=== PATIENT | female | born 1970 | race American Indian/Alaskan Native ===

== ENCOUNTER 2016-09-25 18:31 | Emergency (ER) | payer SELFPAY ==
--- NOTE | 2016-09-25 20:18 | Emergency Department Report ---
Chief Complaint: Skin/Abscess/Foreign Body Stated Complaint: LUMP UNDER LEFT BREAST Time Seen by Provider: 09/25/16 20:15 - HPI History of Present Illness: Patient is a 46-year-old female who presents with a lump/mass underneath her right breast region. Patient states she noticed a lump about a week ago. Patient states his thumb inside and very painful to touch. Patient says she hasn't put warm compresses on the lump. She has a history of high blood pressure on blood pressure medications. Patient states she took her blood pressure medication away earlier today. Patient denies any blurry vision or headaches or dizziness.. Patient denies any drainage from the lump or mass. Patient denies fevers/ nausea/vomiting/chills/abdominal pain or any other problems. - ROS Review of Systems: As noted in HPI - Exam Vital Signs: Vital Signs 09/25/16 18:44 Temperature 98.5 F Pulse Rate 153 H Respiratory 20 Rate Blood Pressure 186/110 O2 Sat by Pulse 100 Oximetry Physical Exam: GENERAL: Alert and oriented x3, no apparent distress, Normal Gait, atraumatic. LUNGS: Symetrical with respiration, No wheezing, no rales or crackles, CTAB. HEART: S1, S2 present, regular rate and rhythm without murmur, no rubs, no gallops. BREAST: Symetrical, Supple bilaterally, lesions, ulcerations. NOn draining flactulant 2-3 cm painful mass on righ chest area under breast. slightly eythematous. MSE screening note: Focused history and physical exam performed. Due to findings the following was ordered: ED Medical Decision Making - Medical Decision Making Also on 153 at initial triage. Patient's alert and oriented 3. Patient is in no respiratory or acute distress. Patient can be seen in fast track due to no other symptoms other than painful mass underneath breasts. ED Disposition for MSE Condition: Stable
--- NOTE | 2016-09-26 02:59 | Emergency Department Report ---
Abscess Boil HPI - HPI Chief Complaint: Skin/Abscess/Foreign Body Stated Complaint: LUMP UNDER LEFT BREAST Time Seen by Provider: 09/26/16 02:24 Duration: 1 Week Location: Other (underneath right breast) Severity: Severe History: Yes Pain (to ponder left breast), Yes Purulent Drainage (patient states she squeezed it and some white pus came out), No Fever, No Numbness, No Foreign Body, No Previous History, No Insect Bite HPI: Patient here reporting that she has a lump under her right breast that started 1 week ago.. She says she squeezed some discharge out of area and it smelled bad. Denies any fever or chills .report redness and tenderness in the area. Denies any drainage from the nipple. Eyes any lump in breast. She said that she has been putting warm compresses to side and it's been increasing in size. Patient heart rate in triage is 153. EKG showed sinus tachycardia at 1: 15. Patient says she sees a clinical nursing manager because she gets tachycardia and she is on metoprolol. Home Medications: Home Medications Medication Instructions Recorded Confirmed Last Taken Flecainide [Tambocor] 50 mg PO QDAY 10/12/15 10/12/15 Unknown Previous Rx's Medication Instructions Recorded Last Taken Type Aspirin [Aspirin BABY CHEW TAB] 81 mg PO QDAY #30 tab.chew 12/18/14 Unknown Rx Levothyroxine [Synthroid] 25 mcg PO DAILY@0600 #30 tablet 12/18/14 Unknown Rx Metoprolol [Lopressor TAB] 6.25 mg PO BID #60 tablet 12/18/14 Unknown Rx traMADol [Ultram] 50 mg PO Q4HR PRN #20 tablet 10/13/15 Unknown Rx Cyclobenzaprine [Flexeril] 10 mg PO TID PRN #14 tablet 08/19/16 Unknown Rx HYDROcodone/APAP 5-325 [[place] 1 - 2 each PO Q6HR PRN #14 tablet 08/19/16 Unknown Rx 5/325] Ibuprofen [Motrin 800 MG tab] 800 mg PO Q8HR PRN #20 tablet 09/26/16 Unknown Rx Sulfamethoxazole/Trimethoprim 1 each PO BID #20 tablet 09/26/16 Unknown Rx [Bactrim DS TAB] Allergies/Adverse Reactions: Allergies Allergy/AdvReac Type Severity Reaction Status Date / Time clindamycin Allergy Rash Verified 07/26/13 09:19 ED Review of Systems ROS: Stated complaint: LUMP UNDER LEFT BREAST Other details as noted in HPI Comment: All other systems reviewed and negative Constitutional: denies: chills, fever Respiratory: no symptoms reported Cardiovascular: palpitations. denies: chest pain, edema, syncope Gastrointestinal: denies: abdominal pain, nausea, vomiting, diarrhea, constipation Musculoskeletal: denies: back pain, arthralgia Skin: other (lump beneath her right breast. Tender and red) Neurological: denies: headache ED Past Medical Hx - Past Medical History Previous Medical History?: Yes Hx Hypertension: Yes Hx Congestive Heart Failure: No Hx Diabetes: No Hx Asthma: No Hx COPD: No Additional medical history: Multiple myeloma - Surgical History Past Surgical History?: Yes Hx Appendectomy: Yes Additional Surgical History: partial hysterectomy. x 2. - Family History Family history: hypertension - Social History Smoking Status: Never Smoker Substance Use Type: None - Medications Home Medications: Home Medications Medication Instructions Recorded Confirmed Last Taken Type Aspirin [Aspirin BABY CHEW TAB] 81 mg PO QDAY #30 tab.chew 12/18/14 10/12/15 Unknown Rx Levothyroxine [Synthroid] 25 mcg PO DAILY@0600 #30 tablet 12/18/14 10/12/15 Unknown Rx Metoprolol [Lopressor TAB] 6.25 mg PO BID #60 tablet 12/18/14 10/12/15 Unknown Rx Flecainide [Tambocor] 50 mg PO QDAY 10/12/15 10/12/15 Unknown History traMADol [Ultram] 50 mg PO Q4HR PRN #20 tablet 10/13/15 Unknown Rx Cyclobenzaprine [Flexeril] 10 mg PO TID PRN #14 tablet 08/19/16 Unknown Rx HYDROcodone/APAP 5-325 [[place] 1 - 2 each PO Q6HR PRN #14 tablet 08/19/16 Unknown Rx 5/325] Ibuprofen [Motrin 800 MG tab] 800 mg PO Q8HR PRN #20 tablet 09/26/16 Unknown Rx Sulfamethoxazole/Trimethoprim 1 each PO BID #20 tablet 09/26/16 Unknown Rx [Bactrim DS TAB] ED Abscess Boil Physical Exam - Exam General: Vital signs noted. No distress. Alert and acting appropriately. This is a 46-year-old female well-nourished well-developed in no acute distress. Size: 1 cm Exam: Yes Tenderness (skinfold on her right breast), Yes Surrounding Cellulites/ Erythema (minimal cellulitis and induration), Yes Normal Neurologic Exam, Yes Normal Circulation, No Fluctuance, No Lymphangitis, No Crepitation, No Heart Murmur Exam: Lungs: Clear to auscultate bilaterally no rhonchi wheezes or rales. CV: S1, S2. EKG revealed tachycardia at 1:15. Breast exam: Normal breast exam. I & D Note - I & D Note I & D Note: Unable to incision and drain cellulitic area due to non-fluctuance. She given instruction to apply warm compresses 3-4 times a day and to return to the emergency room and 3 days after taking antibiotic if area is still not draining. ED Course Vital Signs 09/25/16 09/26/16 18:44 00:14 Temperature 98.5 F 97.7 F Pulse Rate 153 H 85 Respiratory 20 18 Rate Blood Pressure 186/110 177/99 O2 Sat by Pulse 100 100 Oximetry Vital Signs 09/25/16 09/26/16 09/26/16 18:44 00:14 02:55 Temperature 98.5 F 97.7 F Pulse Rate 153 H 85 85 Respiratory 20 18 Rate Blood Pressure 186/110 177/99 O2 Sat by Pulse 100 100 98 Oximetry - Reevaluation(s) Reevaluation #1: 09/26/16 03:00 Patient stable during ED stay. Her vital signs have normalized. Critical care attestation.: If time is entered above; I have spent that time in minutes in the direct care of this critically ill patient, excluding procedure time. ED Medical Decision Making - Medical Decision Making ED course: Patient with cellulitis to skin fold on the right breast. Breast exam was normal. I discussed with patient that his infection has skin infection and will be treated with antibiotic and pain medication. I told her to return to the emergency room 3 days after taking antibiotic if Increase in redness, fever and no drainage inside. Patient was understanding of discharge instruction and discharged home with prescription for Bactrim DS and Motrin. ED Disposition Clinical Impression: Cellulitis Qualifiers: Site of cellulitis: trunk Site of cellulitis of trunk: unspecified site Qualified Code(s): L03.319 - Cellulitis of trunk, unspecified Disposition: DISCHARGED TO HOME OR SELFCARE Is pt being admited?: No Does the pt Need Aspirin: No Condition: Stable Instructions: Cellulitis (ED) Additional Instructions: Please follow up with her primary care physician in 2-3 days. Take antibiotic as prescribed. Return to the emergency room in 3 days after taking antibiotic if he developed increased redness, fever or no drainage. Prescriptions: Sulfamethoxazole/Trimethoprim [Bactrim DS TAB] 1 each PO BID #20 tablet Ibuprofen [Motrin 800 MG tab] 800 mg PO Q8HR PRN #20 tablet PRN Reason: Pain Referrals: PRIMARY CARE, [Primary Care Provider] - 2-3 Days Forms: Work/School Release Form(ED)
[2016-09-26 03:25] VITALS: BP 150/89
== END 2016-09-26 03:38 | disposition home or self-care (01) ==
LOC: ED 18:31
DX: L03.319 Cellulitis of trunk, unspecified (principal); I10 Essential (primary) hypertension; Z88.1 Allergy status to other antibiotic agents; Z79.82 Long term (current) use of aspirin
CPT/HCPCS: 93005; 93010; 99282

== ENCOUNTER 2017-03-05 23:20 | Inpatient (IN) | payer OTHER ==
[2017-03-06] MEDS ORDERED: NACL 0.9% 1000 ML 1,000 ML ONE (00:13)
[2017-03-06] MEDS ORDERED: TYLENOL ONE (00:17)
[2017-03-06] MEDS ORDERED: MORPHINE IV ONE (00:47)
[2017-03-06] MEDS ORDERED: ZOFRAN IV ONE (00:47)
--- NOTE | 2017-03-06 00:48 | Emergency Department Report ---
HPI - General Chief Complaint: Fever Time Seen by Provider: 03/06/17 00:37 - HPI HPI: Room 17 The patient is a 46-year-old female presenting with a chief complaint of headache and sore throat. The patient states for 3 days she has had intermittent bitemporal headache. Patient states she's had a constant sore throat for the past 3 days and felt weak with a decreased appetite. The patient states she was using [id number] medications without improvement. The patient states she's been on antibiotics for 2 weeks for "strep throat" which included amoxicillin and then Augmentin. The patient also states she's had a nonproductive cough for the past 3 days. Today the patient developed hematuria and shortness of breath and this prompted her to come to the emergency department Location: [see above] Duration: 3 days Quality: Pain Severity: 06/12 Modifying factors: [see above] Context: [see above] Mode of transportation: [not driving] ED Past Medical Hx - Past Medical History Hx Hypertension: Yes Hx CVA: Yes ("TIA" with persistent dysarthria) Hx Diabetes: Yes Additional medical history: Multiple myeloma - Surgical History Hx Appendectomy: Yes Additional Surgical History: partial hysterectomy. x 2. - Family History Family history: no significant - Social History Smoking Status: Never Smoker Substance Use Type: None (denies illicit drug use) - Medications Home Medications: Home Medications Medication Instructions Recorded Confirmed Last Taken Type Aspirin [Aspirin BABY CHEW TAB] 81 mg PO QDAY #30 tab.chew 12/18/14 10/12/15 Unknown Rx Levothyroxine [Synthroid] 25 mcg PO DAILY@0600 #30 tablet 12/18/14 10/12/15 Unknown Rx Metoprolol [Lopressor TAB] 6.25 mg PO BID #60 tablet 12/18/14 10/12/15 Unknown Rx Flecainide [Tambocor] 50 mg PO QDAY 10/12/15 10/12/15 Unknown History traMADol [Ultram] 50 mg PO Q4HR PRN #20 tablet 10/13/15 Unknown Rx Cyclobenzaprine [Flexeril] 10 mg PO TID PRN #14 tablet 08/19/16 Unknown Rx HYDROcodone/APAP 5-325 [[place] 1 - 2 each PO Q6HR PRN #14 tablet 08/19/16 Unknown Rx 5/325] Ibuprofen [Motrin 800 MG tab] 800 mg PO Q8HR PRN #20 tablet 09/26/16 Unknown Rx Sulfamethoxazole/Trimethoprim 1 each PO BID #20 tablet 09/26/16 Unknown Rx [Bactrim DS TAB] ED Review of Systems ROS: Stated complaint: SOB/FEVER/WEAK/BLOOD IN URINE Other details as noted in HPI Comment: All other systems reviewed and negative Constitutional: denies: chills, fever ENT: throat pain Respiratory: cough, shortness of breath Cardiovascular: chest pain Endocrine: no symptoms reported Gastrointestinal: denies: abdominal pain Genitourinary: hematuria Musculoskeletal: denies: back pain, joint swelling, arthralgia Neurological: headache Psychiatric: denies: anxiety, depression Hematological/Lymphatic: denies: easy bleeding, easy bruising Physical Exam - Physical Exam Vital Signs: Vital Signs 03/06/17 00:02 Temperature 102.1 F H Pulse Rate 170 H Respiratory 16 Rate Blood Pressure 178/137 O2 Sat by Pulse 97 Oximetry Physical Exam: GENERAL: The patient is well-developed well-nourished female lying on stretcher not appearing to be in acute distress. [] HEENT: Normocephalic. Atraumatic. Extraocular motions are intact. Patient has moist mucous membranes. Oropharynx is clear. Uvula midline NECK: Supple. No meningitic signs are noted. Trachea midline CHEST/LUNGS: Clear to auscultation. There is no respiratory distress noted. HEART/CARDIOVASCULAR: Regular. There is tachycardia. There is no gallop rub or murmur. ABDOMEN: Abdomen is soft, with mild discomfort to palpation in the right upper quadrant. There is no rebound or guarding. Patient has normal bowel sounds. There is no abdominal distention. SKIN: There is no rash. There is no edema. There is no diaphoresis. NEURO: The patient is awake, alert, and oriented. The patient is cooperative. The patient has no focal neurologic deficits. The patient has stuttering Speech. MUSCULOSKELETAL: There is no evidence of acute injury. ED Course Vital Signs 03/06/17 00:02 Temperature 102.1 F H Pulse Rate 170 H Respiratory 16 Rate Blood Pressure 178/137 O2 Sat by Pulse 97 Oximetry ED Medical Decision Making - Lab Data Result diagrams: 03/06/17 03:17 03/06/17 00:23 Laboratory Results - last 24 hr 07/12/1803/06/17 03/06/17 00:23 00:23 00:23 WBC RBC Hgb Hct MCV MCH MCHC RDW Plt Count Lymph % (Auto) [place] % (Auto) Eos % (Auto) Baso % (Auto) Lymph # [place] # Eos # Baso # Seg Neutrophils % Seg Neutrophils # PT 13.8 INR 1.07 APTT 31.8 VBG pH Sodium 135 L Potassium 3.8 Chloride 96.6 L Carbon Dioxide 19 L Anion Gap 23 BUN 13 Creatinine 0.9 Estimated GFR > 60 BUN/Creatinine Ratio 14.44 Glucose 133 H Calcium 9.4 Total Bilirubin Direct Bilirubin Indirect Bilirubin AST ALT Alkaline Phosphatase Total Creatine Kinase CK-MB (CK-2) CK-MB (CK-2) Rel Index Troponin T < 0.010 Total Protein Albumin Albumin/Globulin Ratio Lipase TSH 0.233 L Free T4 1.34 Urine Color Urine Turbidity Urine pH Ur Specific [place] Urine Protein Urine Glucose (UA) Urine Ketones Urine Blood Urine Nitrite Urine Bilirubin Urine Urobilinogen Ur Leukocyte Esterase Urine WBC (Auto) Urine RBC (Auto) U Epithel Cells (Auto) 03/06/17 03/06/17 03/06/17 00:23 01:05 01:05 WBC RBC Hgb Hct MCV MCH MCHC RDW Plt Count Lymph % (Auto) [place] % (Auto) Eos % (Auto) Baso % (Auto) Lymph # [place] # Eos # Baso # Seg Neutrophils % Seg Neutrophils # PT INR APTT VBG pH 7.370 Sodium Potassium Chloride Carbon Dioxide Anion Gap BUN Creatinine Estimated GFR BUN/Creatinine Ratio Glucose Calcium Total Bilirubin Direct Bilirubin Indirect Bilirubin AST ALT Alkaline Phosphatase Total Creatine Kinase 155 H CK-MB (CK-2) < 1.0 CK-MB (CK-2) Rel Index 0.6 Troponin T < 0.010 Total Protein Albumin Albumin/Globulin Ratio Lipase TSH Free T4 Urine Color Urine Turbidity Urine pH Ur Specific [place] Urine Protein Urine Glucose (UA) Urine Ketones Urine Blood Urine Nitrite Urine Bilirubin Urine Urobilinogen Ur Leukocyte Esterase Urine WBC (Auto) Urine RBC (Auto) U Epithel Cells (Auto) 03/06/17 03/06/17 03/06/17 01:05 03:09 03:17 WBC 10.8 RBC 4.11 Hgb 10.6 Hct 32.8 MCV 80 MCH 26 L MCHC 32 RDW 13.3 Plt Count 285 Lymph % (Auto) 25.4 [place] % (Auto) 6.8 Eos % (Auto) 0.1 Baso % (Auto) 0.2 Lymph # 2.7 [place] # 0.7 Eos # 0.0 Baso # 0.0 Seg Neutrophils % 67.5 Seg Neutrophils # 7.3 PT INR APTT VBG pH Sodium Potassium Chloride Carbon Dioxide Anion Gap BUN Creatinine Estimated GFR BUN/Creatinine Ratio Glucose Calcium Total Bilirubin 0.60 Direct Bilirubin < 0.2 Indirect Bilirubin 0.4 AST 32 ALT 44 Alkaline Phosphatase 127 Total Creatine Kinase CK-MB (CK-2) CK-MB (CK-2) Rel Index Troponin T Total Protein 9.1 H Albumin 4.4 Albumin/Globulin Ratio 0.9 Lipase 42 TSH Free T4 Urine Color Yellow Urine Turbidity Clear Urine pH 6.0 Ur Specific [place] 1.009 Urine Protein <15 mg/dl Urine Glucose (UA) Neg Urine Ketones Neg Urine Blood Sm Urine Nitrite Neg Urine Bilirubin Neg Urine Urobilinogen < 2.0 Ur Leukocyte Esterase Neg Urine WBC (Auto) 1.0 Urine RBC (Auto) 2.0 U Epithel Cells (Auto) 1.0 03/06/17 03:17 WBC RBC Hgb Hct MCV MCH MCHC RDW Plt Count Lymph % (Auto) [place] % (Auto) Eos % (Auto) Baso % (Auto) Lymph # [place] # Eos # Baso # Seg Neutrophils % Seg Neutrophils # PT INR APTT VBG pH Sodium Potassium Chloride Carbon Dioxide Anion Gap BUN Creatinine Estimated GFR BUN/Creatinine Ratio Glucose Calcium Total Bilirubin Direct Bilirubin Indirect Bilirubin AST ALT Alkaline Phosphatase Total Creatine Kinase CK-MB (CK-2) CK-MB (CK-2) Rel Index Troponin T < 0.010 Total Protein Albumin Albumin/Globulin Ratio Lipase TSH Free T4 Urine Color Urine Turbidity Urine pH Ur Specific [place] Urine Protein Urine Glucose (UA) Urine Ketones Urine Blood Urine Nitrite Urine Bilirubin Urine Urobilinogen Ur Leukocyte Esterase Urine WBC (Auto) Urine RBC (Auto) U Epithel Cells (Auto) - EKG Data -: EKG Interpreted by Me EKG shows normal: sinus rhythm Rate: tachycardia (129 bpm) - EKG Data When compared to previous EKG there are: no significant change Interpretation: unchanged when compared t (09/25/2016) - Radiology Data Radiology results: report reviewed (CT head, CT neck, CT abdomen and pelvis), image reviewed (CT head, CT neck, CT abdomen and pelvis, chest x-ray) interpreted by me: Chest x-ray- no focal infiltrates, no pneumothorax CT head (read by radiologist)-there is no evidence of an acute intracranial process CT neck (read by radiologist)-normal examination CT abdomen and pelvis (read by radiologist)-there is no evidence of intestinal or urinary tract obstruction. No ileus or enteritis. Patient has had previous appendectomy. Large septated cyst region and left ovary measures up to 6 cm. This could represent multiple etiologies. Further differentiation with ultrasound would be appropriate. - Differential Diagnosis pyelonephritis, renal colic, retropharyngeal abscess, pneumonia, DKA Critical care attestation.: If time is entered above; I have spent that time in minutes in the direct care of this critically ill patient, excluding procedure time. ED Disposition Clinical Impression: Stuttering, Multiple myeloma Disposition: [id number] OP ADMIT IP TO THIS HOSP Is pt being admited?: Yes Does the pt Need Aspirin: Yes Condition: Fair Time of Disposition: 04:53 (hospitalist paged)
[2017-03-06 01:24] LABS: Anion Gap 23 mmol/L; BUN/Creatinine Ratio 14.44; Blood Urea Nitrogen 13 mg/dL (7-17); Calcium 9.4 mg/dL (8.4-10.2); Carbon Dioxide 19 mmol/L (22-30); Chloride 96.6 mmol/L (98-107); Glucose 133 mg/dL (65-100); Potassium 3.8 mmol/L (3.6-5.0); Sodium 135 mmol/L (137-145)
[2017-03-06 01:28] LABS: Creatine Kinase 155 units/L (30-135)
[2017-03-06] MEDS ORDERED: NACL ONE (01:29)
[2017-03-06 01:30] LABS: INR 1.07 (0.87-1.13)
[2017-03-06 01:31] LABS: Partial Thromboplastin Time 31.8 Sec. (24.2-36.6)
[2017-03-06 01:41] LABS: Creatine Kinase MB < 1.0 ng/mL (0.0-4.0)
--- NOTE | 2017-03-06 02:20 | Cat Scan Report ---
FINAL REPORT PROCEDURE: CT HEAD/BRAIN WO CON TECHNIQUE: Computerized tomography of the head was performed without contrast material. HISTORY: headache COMPARISON: 10/13/2015 FINDINGS: Skull and scalp: Normal. Paranasal sinuses: Normal. Ventricles and subarachnoid spaces: Normal. Cerebrum: No evidence of hemorrhage, acute infarction or mass . Cerebellum and brainstem: No evidence of hemorrhage, acute infarction or mass. Vasculature: Normal. Comments: None. IMPRESSION: There is no evidence of an acute intracranial process
[2017-03-06 02:23] LABS: Alanine Aminotransferase 44 units/L (7-56); Albumin 4.4 g/dL (3.9-5); Albumin/Globulin Ratio 0.9 %; Alkaline Phosphatase 127 units/L (35-129); Bilirubin,Direct < 0.2 mg/dL (0-0.2); Bilirubin,Indirect 0.4 mg/dL; Lipase 42 units/L (13-60); Total Protein 9.1 g/dL (6.3-8.2)
--- NOTE | 2017-03-06 02:28 | Cat Scan Report ---
FINAL REPORT PROCEDURE: CT NECK W CON TECHNIQUE: Computerized axial tomography of the soft tissue neck was performed following the IV injection of iodinated nonionic contrast. HISTORY: sore throat, fever, tachycardia COMPARISON: No prior studies are available for comparison. FINDINGS: Skull and scalp: Normal. Paranasal sinuses: Normal. Nasopharynx: Normal . Oral cavity: Normal . Epiglottis/vallecula: Normal . Larynx/pyriform sinuses: Normal . Thyroid gland: Normal . Lymph nodes: None enlarged . Salivary glands: Normal . Upper thorax: Normal . IMPRESSION: Normal Examination
--- NOTE | 2017-03-06 02:43 | Cat Scan Report ---
FINAL REPORT PROCEDURE: CT ABDOMEN PELVIS W CON TECHNIQUE: Computerized axial tomography of the abdomen and pelvis was performed after the IV injection of iodinated nonionic contrast. HISTORY: hematuria, fever, tachycardia COMPARISON: 09/12/2014 FINDINGS: Visualized lower thorax: No significant abnormality. Liver: Normal size and attenuation. Spleen: Normal size and attenuation. Gallbladder and biliary system: Normal. Pancreas: Normal. Adrenals: Normal. Kidneys: Both kidneys have a normal size. No hydronephrosis. No renal stones. There is a small 1 centimeter cyst in the inferior right renal cortex.. GI tract: No obstruction. No ileus or enteritis. The appendix is absent. Minimal diverticular change in the lower colon. No inflammatory process.. Lymph nodes and mesentery: Normal. Vasculature: Normal. Bladder: Normal. Reproductive organs: Previous hysterectomy. There is a septated cyst in the left ovary. This mass measures 5.9 x 5 by 6 centimeters.. Peritoneum: No free fluid. Musculoskeletal structures: No significant abnormality. Other: None. IMPRESSION: There is no evidence of intestinal or urinary tract obstruction. No ileus or enteritis. Patient has had previous appendectomy. Large septated cystic region in the left ovary measures up to 6 centimeters. This could represent multiple etiologies. Further differentiation with ultrasound would be appropriate.
[2017-03-06 03:35] LABS: Basophils % (Auto) 0.2 % (0.0-1.8); Eosinophils % (Auto) 0.1 % (0.0-4.3); Hematocrit 32.8 % (30.3-42.9); Hemoglobin 10.6 gm/dl (10.1-14.3); Mean Corpuscular HGB Conc 32 % (30-34); Mean Corpuscular Volume 80 fl (79-97); Platelet Count 285 K/mm3 (140-440); Red Blood Count 4.11 M/mm3 (3.65-5.03); Red Cell Distribution Width 13.3 % (13.2-15.2); White Blood Count 10.8 K/mm3 (4.5-11.0)
[2017-03-06 03:39] LABS: Mean Corpuscular Hemoglobin 26 pg (28-32)
[2017-03-06 04:04] LABS: Bilirubin,Urine NEG (Negative); Blood,Urine SM (Negative); Ketones,Urine NEG (Negative); Leukocyte Esterase,Urine NEG (Negative); Nitrite,Urine NEG (Negative); Protein,Urine <15 mg/dL mg/dL (Negative); Urobilinogen,Urine < 2.0 mg/dL (<2.0)
[2017-03-06] MEDS ORDERED: TYLENOL PO ONE (04:42)
[2017-03-06] MEDS ORDERED: NACL 0.9% 1000 ML 1,000 ML IV ONE (04:43)
[2017-03-06] MEDS ORDERED: DULCOLAX PR PRN (08:23)
[2017-03-06] MEDS ORDERED: ZOFRAN IV PRN (08:26)
--- NOTE | 2017-03-06 08:51 | XRay Report ---
AP CHEST: HISTORY: chest pain AP view of the chest demonstrates a normal mediastinal and cardiac contour with clear lungs and normal bony and soft tissue structures. IMPRESSION: Unremarkable AP chest. No significant change since 12/18/14.
[2017-03-06] MEDS ORDERED: D50W (25GM) IV PRN (10:20)
[2017-03-06] MEDS ORDERED: BABY ASPIRIN ONE (10:53)
[2017-03-06] MEDS ORDERED: LOPRESSOR ONE (10:54)
[2017-03-06] MEDS ORDERED: LOVENOX SUB-Q ONE (10:54)
[2017-03-06] MEDS: BABY ASPIRIN PO SCH (11:05)
[2017-03-06] MEDS: LOVENOX SUB-Q SCH (11:05)
[2017-03-06] MEDS: LOPRESSOR PO SCH ×2 (11:05→22:35)
--- NOTE | 2017-03-06 12:49 | History and Physical Report ---
<NASIMA CRESPO - Last Filed: 03/06/17 14:42> History of Present Illness Date of examination: 03/06/17 Date of admission: 03/06/17 10:13 Chief complaint: sore throat, bloody urine and fever History of present illness: Patient is a 46 years old -[place] with the past medical history of hypertension, hypothyroidism and TIA 3 weeks ago, who presents to the ED today complaining of, fever, sore throat, abdominal pain and bloody urine.The patient states that for the past five days she has felt bloated and has had a decrease in appetite. Two days ago she began having intermittent mild abdominal pain that initially felt like gas pains but it has now progressed to being nearly constant. Since yesterday she has had severe nausea and has had 4 episodes of bilious vomiting despite not having taken anything by mouth in over 24 hours. Vomiting is the only thing that seems to provide some minimal relief. Currently , the pain is described as a constant dull pain that intermittently becomes sharp and well localized. The sharp pain tends to occur in different locations at different times. The intensity of the pain has been increasing over the past two days and on pain scale she now rates the pain at 8 out of 10. Patient also reported intermittent headache. Patient state that she had a constant sore throat for the past 5 days and felt weak with the decreased appetite. Patient states she has been admitted to [facility] for TIA, but also was treated with antibiotics for the past 2 weeks for strep throat with amoxicillin followed by Augmentin. She has bloody urine since yesterday. The blood is light red in color and is not bright red. There is a sufficient amount of blood to turn the toilet water red. She does not know how many times per day she experiences this bleeding. He has not seen a bloody bowel movement in the past week. Patient has had subjective fever .She denies a recent history of diarrhea , hemoptysis or hematochezia. Past History Past Medical History: hypertension, hypothyroidism, other (TIA, Stuttering speech ) Past Surgical History: hysterectomy Social history: no significant social history, lives with family Family history: hypertension Medications and Allergies Allergies Allergy/AdvReac Type Severity Reaction Status Date / Time clindamycin Allergy Rash Verified 07/26/13 09:19 Home Medications Medication Instructions Recorded Confirmed Last Taken Type Aspirin [Aspirin BABY CHEW TAB] 81 mg PO QDAY #30 tab.chew 12/18/14 03/06/1712/18 Rx Metoprolol [Lopressor TAB] 6.25 mg PO BID #60 tablet 12/18/14 03/06/17 03/06/17 Rx traMADol [Ultram] 50 mg PO Q4HR PRN #20 tablet 10/13/15 03/06/17 Unknown Rx Cyclobenzaprine [Flexeril] 10 mg PO TID PRN #14 tablet 08/19/16 03/06/17 Unknown Rx HYDROcodone/APAP 5-325 [[place] 1 - 2 each PO Q6HR PRN #14 tablet 08/19/16 Unknown Rx 5/325] Synthroid 100 mcg PO DAILY 03/06/17 03/06/17 03/04/17 History Topiramate 25 mg PO BID 03/06/17 03/06/17 03/04/17 History metFORMIN 500 mg PO BID 03/06/17 03/06/17 03/04/17 History Active Meds: Active Medications Acetaminophen (Tylenol) 650 mg PO Q4H PRN PRN Reason: Pain MILD(1-3)/Fever >100.5/SHEPPARD Albuterol/Ipratropium (Duoneb 0.5 Mg-3 Mg/3 Ml Soln) 1 ampul IH Q6HRT [facility] Aspirin (Baby Aspirin) 81 mg PO QDAY [facility] Last Admin: 03/06/17 11:05 Dose: 81 mg Bisacodyl (Dulcolax) 10 mg [place] QDAY PRN PRN Reason: Constipation unrelieved by MOM Dextrose (D50w (25gm)) 50 ml IV PRN PRN PRN Reason: Hypoglycemia Enoxaparin Sodium (Lovenox) 40 mg SUB-Q DAILY [facility] Last Admin: 03/06/17 11:05 Dose: 40 mg Sodium Chloride (Nacl 0.9% 1000 Ml) 1,000 mls @ 75 mls/hr IV DIRECT TIM Insulin Aspart (Novolog) 0 units SUB-Q QHS [facility] PRN Reason: Protocol Insulin Aspart (Novolog) 0 units SUB-Q AC [facility] PRN Reason: Protocol Levothyroxine Sodium (Synthroid) 25 mcg PO DAILY@0600 [facility] Methylprednisolone Sodium Succinate (Solu-Medrol) 40 mg IV QDAY [facility] Last Admin: 03/06/17 11:05 Dose: 40 mg Metoprolol Tartrate (Lopressor) 6.25 mg PO BID [facility] Last Admin: 03/06/17 11:05 Dose: 6.25 mg Morphine Sulfate (Morphine) 2 mg IV Q4H PRN PRN Reason: Pain, Moderate (4-6) Ondansetron HCl (Zofran) 4 mg IV PRN PRN PRN Reason: vomting Review of Systems Constitutional: fever, no weight loss, no weight gain Ears, nose, mouth and throat: no ear pain, no ear discharge, no tinnitis Breasts: normal Cardiovascular: no chest pain, no lightheadedness, no shortness of breath Respiratory: no cough, no cough with sputum, no excessive sputum Gastrointestinal: nausea, vomiting, no diarrhea, no constipation, no hematemesis Genitourinary Female: hematuria, no dyspareunia, no dysmenorrhea, no dysuria Menstruation: no currently menstrual, no premenarcheal Musculoskeletal: no neck pain, no shooting arm pain, no arm numbness/tingling Integumentary: no deferred, no rash, no pruritis Neurological: headaches, no head injury, no transient paralysis, no paralysis Psychiatric: no anxiety, no memory loss Endocrine: no cold intolerance, no heat intolerance, no polyphagia Hematologic/Lymphatic: no easy bruising Allergic/Immunologic: no urticaria, no allergic rhinitis Exam - Constitutional Vitals: Temp Pulse Resp BP Pulse Ox 98.9 F 101 H 18 131/84 100 03/06/17 07:00 03/06/17 07:00 03/06/17 07:00 03/06/17 07:00 03/06/17 07:00 General appearance: Present: no acute distress - EENT Eyes: Present: PERRL ENT: hearing intact - Neck Neck: Present: supple - Respiratory Respiratory effort: normal Respiratory: bilateral: wheezing - Extremities Extremities: no ischemia Peripheral Pulses: within normal limits - Abdominal General gastrointestinal: Present: soft, non-tender Female genitourinary: Present: deferred - Rectal Rectal Exam: deferred - Integumentary Integumentary: Present: clear, warm - Musculoskeletal Musculoskeletal: strength equal bilaterally - Psychiatric Psychiatric: appropriate mood/affect - Neurologic Neurologic: CNII-XII intact - Allied Health Allied health notes reviewed: nursing Results - Labs CBC & Chem 7: 07/04/17 03:17 03/06/17 00:23 Labs: Laboratory Last Values WBC 10.8 K/mm3 (4.5-11.0) 03/06/17 03:17 RBC 4.11 M/mm3 (3.65-5.03) 03/06/17 03:17 Hgb 10.6 gm/dl (10.1-14.3) 03/06/17 03:17 Hct 32.8 % (30.3-42.9) 03/06/17 03:17 MCV 80 fl (79-97) 03/06/17 03:17 MCH 26 pg (28-32) L 03/06/17 03: MCHC 32 % (30-34) 03/06/17 03:17 RDW 13.3 % (13.2-15.2) 03/06/17 03:17 Plt Count 285 K/mm3 (140-440) 03/06/17 03:17 Lymph % (Auto) 25.4 % (13.4-35.0) 03/06/17 03:17 [place] % (Auto) 6.8 % (0.0-7.3) 03/06/17 03:17 Eos % (Auto) 0.1 % (0.0-4.3) 03/06/17 03:17 Baso % (Auto) 0.2 % (0.0-1.8) 03/06/17 03:17 Lymph # 2.7 K/mm3 (1.2-5.4) 03/06/17 03:17 [place] # 0.7 K/mm3 (0.0-0.8) 03/06/17 03:17 Eos # 0.0 K/mm3 (0.0-0.4) 03/06/17 03:17 Baso # 0.0 K/mm3 (0.0-0.1) 03/06/17 03:17 Seg Neutrophils % 67.5 % (40.0-70.0) 03/06/17 03:17 Seg Neutrophils # 7.3 K/mm3 (1.8-7.7) 03/06/17 03:17 PT 13.8 Sec. (12.2-14.9) 03/06/17 00:23 INR 1.07 (0.87-1.13) 03/06/17 00:23 APTT 31.8 Sec. (24.2-36.6) 03/06/17 00:23 VBG pH 7.370 (7.320-7.420) 03/06/17 01:05 Sodium 135 mmol/L (137-145) L 03/06/17 00:23 Potassium 3.8 mmol/L (3.6-5.0) 03/06/17 00:23 Chloride 96.6 mmol/L (98-107) L 03/06/17 00:23 Carbon Dioxide 19 mmol/L (22-30) L 03/06/17 00:23 Anion Gap 23 mmol/L 03/06/17 00:23 BUN 13 mg/dL (7-17) 03/06/17 00:23 Creatinine 0.9 mg/dL (0.7-1.2) 03/06/17 00:23 Estimated GFR > 60 ml/min 03/06/17 00:23 BUN/Creatinine Ratio 14.44 % 03/06/17 00:23 Glucose 133 mg/dL (65-100) H 03/06/17 00:23 Hemoglobin A1c 6.0 % (4-6) 03/06/17 03:17 Calcium 9.4 mg/dL (8.4-10.2) 03/06/17 00:23 Total Bilirubin 0.60 mg/dL (0.1-1.2) 03/06/17 01:05 Direct Bilirubin < 0.2 mg/dL (0-0.2) 03/06/17 01:05 Indirect Bilirubin 0.4 mg/dL 03/06/17 01:05 AST 32 units/L (5-40) 03/06/17 01:05 ALT 44 units/L (7-56) 03/06/17 01:05 Alkaline Phosphatase 127 units/L (35-129) 03/06/17 01:05 Total Creatine Kinase 155 units/L (30-135) H 03/06/17 00:23 CK-MB (CK-2) < 1.0 ng/mL (0.0-4.0) 03/06/17 00:23 CK-MB (CK-2) Rel Index 0.6 (0-4) 03/06/17 00:23 Troponin T < 0.010 ng/mL (0.00-0.029) 03/06/17 06:07 Total Protein 9.1 g/dL (6.3-8.2) H 03/06/17 01:05 Albumin 4.4 g/dL (3.9-5) 03/06/17 01:05 Albumin/Globulin Ratio 0.9 % 03/06/17 01:05 Lipase 42 units/L (13-60) 03/06/17 01:05 TSH 0.233 mlU/mL (0.270-4.200) L 03/06/17 00:23 Free T4 1.34 ng/dL (0.76-1.46) 03/06/17 00:23 Urine Color Yellow (Yellow) 03/06/17 03:09 Urine Turbidity Clear (Clear) 03/06/17 03:09 Urine pH 6.0 (5.0-7.0) 03/06/17 03:09 Ur Specific [place] 1.009 (1.003-1.030) 03/06/17 03:09 Urine Protein <15 mg/dl mg/dL (Negative) 03/06/17 03:09 Urine Glucose (UA) Neg mg/dL (Negative) 03/06/17 03:09 Urine Ketones Neg mg/dL (Negative) 03/06/17 03:09 Urine Blood Sm (Negative) 03/06/17 03:09 Urine Nitrite Neg (Negative) 03/06/17 03:09 Urine Bilirubin Neg (Negative) 03/06/17 03:09 Urine Urobilinogen < 2.0 mg/dL (<2.0) 03/06/17 03:09 Ur Leukocyte Esterase Neg (Negative) 03/06/17 03:09 Urine WBC (Auto) 1.0 /HPF (0.0-6.0) 03/06/17 03:09 Urine RBC (Auto) 2.0 /HPF (0.0-6.0) 03/06/17 03:09 U Epithel Cells (Auto) 1.0 /HPF (0-13.0) 03/06/17 03:09 - Imaging and Cardiology Chest x-ray: image reviewed (unremarkable AP chest) CT scan - abdomen: image reviewed (CT neck, normal) CT Scan - head: image reviewed (there is no evidence of an acute intracranial process) Assessment and Plan Assessment and plan: Patient is a 46 years old -[place] with the past medical history of hypertension, hypothyroidism and TIA 3 weeks ago, who presents to the ED today complaining multiple symptoms but the main issues are, fever, sore throat, abdominal pain and bloody urine. ASSESSMENT/PLAN 1. Hematuria IV fluid hydration 2. Sore throat Rapid strep test positive Started on IV antibiotic, Levaquin, 3. Sepsis Patient HR was 101 Patient had blood cultures drawn prior to antibiotic Blood culture ordered Urinalysis ordered We initiated empiric treatment with vancomycin and zosyn 4. Abdominal pain CT of the abdomen shows large septated cystic region in the left ovary prepped 6 cm Ultrasound of the abdomen ordered 5.Exacerbation of asthma started on Albuterol/ [place] oxygen as needed Frequent respiratory assessment 6. Hypertension We will res home antihypertensive medicine 7. Diabetes mellitus Accu-Chek before meals and at this Sliding scale insulin/ NovoLog Consistent carbohydrate diet 8. Hypothyroidism We will resume Synthroid 9. TIA We will resume Aspirin 10. DVT prophylaxis Lovenox Patient full code <YOSELIN BAE R - Last Filed: 03/06/17 19:15> History of Present Illness Date of admission: 03/06/17 10:13 Medications and Allergies Active Meds: Active Medications Acetaminophen (Tylenol) 650 mg PO Q4H PRN PRN Reason: Pain MILD(1-3)/Fever >100.5/SHEPPARD Albuterol/Ipratropium (Duoneb 0.5 Mg-3 Mg/3 Ml Soln) 1 ampul IH Q6HRT [facility] Aspirin (Baby Aspirin) 81 mg PO QDAY [facility] Last Admin: 03/06/17 11:05 Dose: 81 mg Bisacodyl (Dulcolax) 10 mg [place] QDAY PRN PRN Reason: Constipation unrelieved by MOM Dextrose (D50w (25gm)) 50 ml IV PRN PRN PRN Reason: Hypoglycemia Enoxaparin Sodium (Lovenox) 40 mg SUB-Q DAILY [facility] Last Admin: 03/06/17 11:05 Dose: 40 mg Sodium Chloride (Nacl 0.9% 1000 Ml) 1,000 mls @ 75 mls/hr IV DIRECT TIM Levofloxacin/Dextrose (Levaquin 500mg/100ml) 500 mg in 100 mls @ 100 mls/hr IV Q24HR TIM PRN Reason: Protocol Vancomycin HCl 2,000 mg/ (Sodium Chloride) 540 mls @ 250 mls/hr IV ONCE ONE Stop: 03/06/17 16:09 Vancomycin HCl 1,500 mg/ (Sodium Chloride) 530 mls @ 333.333 mls/hr IV Q12H [facility] Insulin Aspart (Novolog) 0 units SUB-Q QHS TIM PRN Reason: Protocol Insulin Aspart (Novolog) 0 units SUB-Q AC [facility] PRN Reason: Protocol Levothyroxine Sodium (Synthroid) 25 mcg PO DAILY@0600 [facility] Methylprednisolone Sodium Succinate (Solu-Medrol) 40 mg IV QDAY [facility] Last Admin: 03/06/17 11:05 Dose: 40 mg Metoprolol Tartrate (Lopressor) 6.25 mg PO BID [facility] Last Admin: 03/06/17 11:05 Dose: 6.25 mg Morphine Sulfate (Morphine) 2 mg IV Q4H PRN PRN Reason: Pain, Moderate (4-6) Ondansetron HCl (Zofran) 4 mg IV PRN PRN PRN Reason: vomting Pneumococcal Polyvalent Vaccine (Pneumovax 23) 0.5 ml IM .ONCE ONE Stop: 03/07/17 12:19 Vancomycin HCl (Vancomycin Pharmacy To Dose) 1 each IV PKCONSULT [facility] PRN Reason: Protocol Exam - Constitutional Vitals: Temp Pulse Resp BP Pulse Ox 98.9 F 101 H 18 131/84 100 03/06/17 07:00 03/06/17 07:00 03/06/17 07:00 03/06/17 07:00 03/06/17 07:00 Results - Labs CBC & Chem 7: 03/06/17 03:17 03/06/17 00:23 Labs: Laboratory Last Values WBC 10.8 K/mm3 (4.5-11.0) 03/06/17 03:17 RBC 4.11 M/mm3 (3.65-5.03) 03/06/17 03:17 Hgb 10.6 gm/dl (10.1-14.3) 03/06/17 03:17 Hct 32.8 % (30.3-42.9) 03/06/17 03:17 MCV 80 fl (79-97) 03/06/17 03:17 MCH 26 pg (28-32) L 03/06/17 03:17 MCHC 32 % (30-34) 03/06/17 03: RDW 13.3 % (13.2-15.2) 03/06/17 03:17 Plt Count 285 K/mm3 (140-440) 03/06/17 03:17 Lymph % (Auto) 25.4 % (13.4-35.0) 03/06/17 03:17 [place] % (Auto) 6.8 % (0.0-7.3) 03/06/17 03:17 Eos % (Auto) 0.1 % (0.0-4.3) 03/06/17 03:17 Baso % (Auto) 0.2 % (0.0-1.8) 03/06/17 03:17 Lymph # 2.7 K/mm3 (1.2-5.4) 03/06/17 03:17 [place] # 0.7 K/mm3 (0.0-0.8) 03/06/17 03: Eos # 0.0 K/mm3 (0.0-0.4) 03/06/17 03:17 Baso # 0.0 K/mm3 (0.0-0.1) 03/06/17 03:17 Seg Neutrophils % 67.5 % (40.0-70.0) 03/06/17 03: Seg Neutrophils # 7.3 K/mm3 (1.8-7.7) 03/06/17 03:17 PT 13.8 Sec. (12.2-14.9) 03/06/17 00:23 INR 1.07 (0.87-1.13) 03/06/17 00:23 APTT 31.8 Sec. (24.2-36.6) 03/06/17 00:23 VBG pH 7.370 (7.320-7.420) 03/06/17 01:05 Sodium 135 mmol/L (137-145) L 03/06/17 00:23 Potassium 3.8 mmol/L (3.6-5.0) 03/06/17 00:23 Chloride 96.6 mmol/L (98-107) L 03/06/17 00:23 Carbon Dioxide 19 mmol/L (22-30) L 03/06/17 00:23 Anion Gap 23 mmol/L 03/06/17 00:23 BUN 13 mg/dL (7-17) 03/06/17 00:23 Creatinine 0.9 mg/dL (0.7-1.2) 03/06/17 00:23 Estimated GFR > 60 ml/min 03/06/17 00:23 BUN/Creatinine Ratio 14.44 % 03/06/17 00:23 Glucose 133 mg/dL (65-100) H 03/06/17 00:23 Hemoglobin A1c 6.0 % (4-6) 03/06/17 03:17 Calcium 9.4 mg/dL (8.4-10.2) 03/06/17 00:23 Total Bilirubin 0.60 mg/dL (0.1-1.2) 03/06/17 01:05 Direct Bilirubin < 0.2 mg/dL (0-0.2) 03/06/17 01:05 Indirect Bilirubin 0.4 mg/dL 03/06/17 01:05 AST 32 units/L (5-40) 03/06/17 01:05 ALT 44 units/L (7-56) 03/06/17 01:05 Alkaline Phosphatase 127 units/L (35-129) 03/06/17 01:05 Total Creatine Kinase 155 units/L (30-135) H 03/06/17 00:23 CK-MB (CK-2) < 1.0 ng/mL (0.0-4.0) 03/06/17 00:23 CK-MB (CK-2) Rel Index 0.6 (0-4) 03/06/17 00:23 Troponin T < 0.010 ng/mL (0.00-0.029) 03/06/17 06:07 Total Protein 9.1 g/dL (6.3-8.2) H 03/06/17 01:05 Albumin 4.4 g/dL (3.9-5) 03/06/17 01:05 Albumin/Globulin Ratio 0.9 % 03/06/17 01:05 Lipase 42 units/L (13-60) 03/06/17 01:05 TSH 0.233 mlU/mL (0.270-4.200) L 03/06/17 00:23 Free T4 1.34 ng/dL (0.76-1.46) 03/06/17 00:23 Urine Color Yellow (Yellow) 03/06/17 03:09 Urine Turbidity Clear (Clear) 03/06/17 03:09 Urine pH 6.0 (5.0-7.0) 03/06/17 03:09 Ur Specific [place] 1.009 (1.003-1.030) 03/06/17 03:09 Urine Protein <15 mg/dl mg/dL (Negative) 03/06/17 03:09 Urine Glucose (UA) Neg mg/dL (Negative) 03/06/17 03:09 Urine Ketones Neg mg/dL (Negative) 03/06/17 03:09 Urine Blood Sm (Negative) 03/06/17 03:09 Urine Nitrite Neg (Negative) 03/06/17 03:09 Urine Bilirubin Neg (Negative) 03/06/17 03:09 Urine Urobilinogen < 2.0 mg/dL (<2.0) 03/06/17 03:09 Ur Leukocyte Esterase Neg (Negative) 03/06/17 03:09 Urine WBC (Auto) 1.0 /HPF (0.0-6.0) 03/06/17 03:09 Urine RBC (Auto) 2.0 /HPF (0.0-6.0) 03/06/17 03:09 U Epithel Cells (Auto) 1.0 /HPF (0-13.0) 03/06/17 03:09 - Imaging and Cardiology Chest x-ray: image reviewed CT scan - abdomen: image reviewed CT Scan - head: image reviewed Assessment and Plan Assessment and plan: Patient seen and examined, as above. Patient stills with positive strep pharyngitis despite 14 days of penicillin and Augmentin; therefore, use Levaquin instead of Zosyn and use IV vancomycin for sepsis. Mild asthma exacerbation hold on IV steroids due to sepsis.
[2017-03-06] MEDS ORDERED: DUONEB 0.5 MG-3 MG/3 ML SOLN IH SCH (14:00)
[2017-03-06] MEDS ORDERED: VANCOMYCIN 2,000 MG in NACL 0.9% 500 ML 500 ML IV ONE (14:00)
[2017-03-06] MEDS ORDERED: VANCOMYCIN PHARMACY TO DOSE IV SCH (14:00)
[2017-03-06] MEDS: NACL 0.9% 1000 ML 1,000 ML IV SCH (14:44)
[2017-03-06] MEDS: LEVAQUIN 500MG/100ML 500 MG/100 ML BAG IV SCH (14:45)
[2017-03-06] MEDS: NOVOLOG SUB-Q SCH ×3 (15:08→22:38)
[2017-03-06] MEDS: MORPHINE IV PRN ×2 (15:10→22:36)
[2017-03-06] MEDS: DUONEB 0.5 MG-3 MG/3 ML SOLN IH SCH (19:48)
[2017-03-07] MEDS: VANCOMYCIN 1,500 MG in NACL 0.9% 500 ML 500 ML IV SCH ×2 (01:49→14:53)
[2017-03-07] MEDS: SYNTHROID PO SCH (05:23)
[2017-03-07 06:26] LABS: Basophils % (Auto) 0.2 % (0.0-1.8); Eosinophils % (Auto) 2.3 % (0.0-4.3); Hematocrit 31.5 % (30.3-42.9); Hemoglobin 10.2 gm/dl (10.1-14.3); Mean Corpuscular HGB Conc 33 % (30-34); Mean Corpuscular Hemoglobin 26 pg (28-32); Mean Corpuscular Volume 81 fl (79-97); Platelet Count 275 K/mm3 (140-440); Red Blood Count 3.92 M/mm3 (3.65-5.03); Red Cell Distribution Width 12.9 % (13.2-15.2); White Blood Count 6.9 K/mm3 (4.5-11.0)
[2017-03-07 06:37] LABS: Anion Gap 18 mmol/L; BUN/Creatinine Ratio 11.42; Blood Urea Nitrogen 8 mg/dL (7-17); Calcium 8.2 mg/dL (8.4-10.2); Carbon Dioxide 22 mmol/L (22-30); Chloride 104.6 mmol/L (98-107); Glucose 136 mg/dL (65-100); Potassium 3.8 mmol/L (3.6-5.0); Sodium 141 mmol/L (137-145)
[2017-03-07] MEDS: NACL 0.9% 1000 ML 1,000 ML IV SCH (07:21)
[2017-03-07] MEDS: DUONEB 0.5 MG-3 MG/3 ML SOLN IH SCH ×3 (07:45→21:04)
[2017-03-07] MEDS: NOVOLOG SUB-Q SCH ×4 (09:24→22:55)
[2017-03-07] MEDS: LEVAQUIN 500MG/100ML 500 MG/100 ML BAG IV SCH (10:00)
[2017-03-07] MEDS: LOPRESSOR PO SCH ×2 (10:52→22:54)
[2017-03-07] MEDS: LOVENOX SUB-Q SCH (10:52)
[2017-03-07] MEDS: TYLENOL PO PRN ×2 (10:53→18:22)
[2017-03-07] MEDS: BABY ASPIRIN PO SCH (10:53)
[2017-03-07] MEDS ORDERED: PNEUMOVAX 23 IM ONE (12:18)
--- NOTE | 2017-03-07 12:29 | Progress Note ---
Assessment and Plan Assessment and plan: Patient is a 46-year-old woman with a history of hypertension, hypothyroidism, pre-diabetes mellitus type II on metformin and TIA (left with stuttering though , ?TIA) approximately 3 weeks ago and strep pharyngitis status post amoxicillin for 7 days followed by course of Augmentin for another 7 days for 14 day total. Patient presents with sore throat and copious amounts of bloody urine and subjective fevers. She was found have positive Streptococcus pharyngitis. Patient stills with positive strep pharyngitis despite 14 days of penicillin and Augmentin; therefore, use Levaquin instead of Zosyn and use IV vancomycin for sepsis. Mild asthma exacerbation hold on IV steroids due to sepsis. -Sepsis due to pharyngitis: Blood cultures pending, treated with IV antibiotics , IV fluids -Hematuria with borderline blood loss acute anemia, most likely due to UTI, urine culture growing gram-negative liya: Continue current therapy await for sensitivity -Diabetes mellitus type II, she was told she was prediabetic but A1c 6 currently on metformin: Add sliding-scale -Morbid obesity BMI 40.6: Counseling lifestyle modifications -DVT prophylaxis: Subcutaneous Lovenox Full code Disposition: Once cultures come back possibly be discharged on oral antibiotics in next 1-2 days History Interval history: Patient seen and examined. Follow up on hematuria which has resolved or patient hasn't noticed any more hematuria. Overnight uneventful. No cp, sob, n/v or severe headaches. Imaging, old records, testing, labs, nursing notes reviewed. Hospitalist Physical - Physical exam Narrative exam: GEN: WDWN, NAD, AWAKE, ALERT, ORIENTATED x 3 CVS: RRR, NORMAL S1S2 LUNGS/CHEST: CTA B, NORMAL CHEST EXPANSION B, GOOD AIR ENTRY B ABD: SOFT, NTND, GBS, NO REBOUND OR GUARDING EXT/SKIN: NO SIGNIFICANT EDEMA OR RASH MSK: FROM X 4 EXTREMITIES NEURO: CN 2-12 GROSSLY INTACT, NO FOCAL DEFICITS PSY: CALM - Constitutional Vitals: Temp Pulse Resp BP Pulse Ox 99.2 F 102 H 20 114/74 98 03/07/17 08:00 03/07/17 08:08 03/07/17 10:53 03/07/17 08:00 03/07/17 08:12 General appearance: Present: no acute distress Results - Labs CBC & Chem 7: 03/07/17 05:04 03/07/17 05:04 Labs: Laboratory Last Values WBC 6.9 K/mm3 (4.5-11.0) 03/07/17 05:04 RBC 3.92 M/mm3 (3.65-5.03) 03/07/17 05:04 Hgb 10.2 gm/dl (10.1-14.3) 03/07/17 05:04 Hct 31.5 % (30.3-42.9) 03/07/17 05:04 MCV 81 fl (79-97) 03/07/17 05:04 MCH 26 pg (28-32) L 03/07/17 05:04 MCHC 33 % (30-34) 03/07/17 05:04 RDW 12.9 % (13.2-15.2) L 03/07/17 05:04 Plt Count 275 K/mm3 (140-440) 03/07/17 05:04 Lymph % (Auto) 39.1 % (13.4-35.0) H 03/07/17 05:04 [place] % (Auto) 8.7 % (0.0-7.3) H 03/07/17 05:04 Eos % (Auto) 2.3 % (0.0-4.3) 03/07/17 05:04 Baso % (Auto) 0.2 % (0.0-1.8) 03/07/17 05:04 Lymph # 2.7 K/mm3 (1.2-5.4) 03/07/17 05:04 [place] # 0.6 K/mm3 (0.0-0.8) 03/07/17 05:04 Eos # 0.2 K/mm3 (0.0-0.4) 03/07/17 05:04 Baso # 0.0 K/mm3 (0.0-0.1) 03/07/17 05:04 Seg Neutrophils % 49.7 % (40.0-70.0) 03/07/17 05:04 Seg Neutrophils # 3.4 K/mm3 (1.8-7.7) 03/07/17 05:04 PT 13.8 Sec. (12.2-14.9) 03/06/17 00:23 INR 1.07 (0.87-1.13) 03/06/17 00:23 APTT 31.8 Sec. (24.2-36.6) 03/06/17 00:23 VBG pH 7.370 (7.320-7.420) 03/06/17 01:05 Sodium 141 mmol/L (137-145) 03/07/17 05:04 Potassium 3.8 mmol/L (3.6-5.0) 03/07/17 05:04 Chloride 104.6 mmol/L (98-107) 03/07/17 05:04 Carbon Dioxide 22 mmol/L (22-30) 03/07/17 05:04 Anion Gap 18 mmol/L 03/07/17 05:04 BUN 8 mg/dL (7-17) 03/07/17 05:04 Creatinine 0.7 mg/dL (0.7-1.2) 03/07/17 05:04 Estimated GFR > 60 ml/min 03/07/17 05:04 BUN/Creatinine Ratio 11.42 % 03/07/17 05:04 Glucose 136 mg/dL (65-100) H 03/07/17 05:04 POC Glucose 125 (70-105) H 03/07/17 11:31 Hemoglobin A1c 6.0 % (4-6) 03/06/17 03:17 Calcium 8.2 mg/dL (8.4-10.2) L 03/07/17 05:04 Total Bilirubin 0.60 mg/dL (0.1-1.2) 03/06/17 01:05 Direct Bilirubin < 0.2 mg/dL (0-0.2) 03/06/17 01:05 Indirect Bilirubin 0.4 mg/dL 03/06/17 01:05 AST 32 units/L (5-40) 03/06/17 01:05 ALT 44 units/L (7-56) 03/06/17 01:05 Alkaline Phosphatase 127 units/L (35-129) 03/06/17 01:05 Total Creatine Kinase 155 units/L (30-135) H 03/06/17 00:23 CK-MB (CK-2) < 1.0 ng/mL (0.0-4.0) 03/06/17 00:23 CK-MB (CK-2) Rel Index 0.6 (0-4) 03/06/17 00:23 Troponin T < 0.010 ng/mL (0.00-0.029) 03/06/17 06:07 Total Protein 9.1 g/dL (6.3-8.2) H 03/06/17 01:05 Albumin 4.4 g/dL (3.9-5) 03/06/17 01:05 Albumin/Globulin Ratio 0.9 % 03/06/17 01:05 Lipase 42 units/L (13-60) 03/06/17 01:05 TSH 0.233 mlU/mL (0.270-4.200) L 03/06/17 00:23 Free T4 1.34 ng/dL (0.76-1.46) 03/06/17 00:23 Urine Color Yellow (Yellow) 03/06/17 03:09 Urine Turbidity Clear (Clear) 03/06/17 03:09 Urine pH 6.0 (5.0-7.0) 03/06/17 03:09 Ur Specific [place] 1.009 (1.003-1.030) 03/06/17 03:09 Urine Protein <15 mg/dl mg/dL (Negative) 03/06/17 03:09 Urine Glucose (UA) Neg mg/dL (Negative) 03/06/17 03:09 Urine Ketones Neg mg/dL (Negative) 03/06/17 03:09 Urine Blood Sm (Negative) 03/06/17 03:09 Urine Nitrite Neg (Negative) 03/06/17 03:09 Urine Bilirubin Neg (Negative) 03/06/17 03:09 Urine Urobilinogen < 2.0 mg/dL (<2.0) 03/06/17 03:09 Ur Leukocyte Esterase Neg (Negative) 03/06/17 03:09 Urine WBC (Auto) 1.0 /HPF (0.0-6.0) 03/06/17 03:09 Urine RBC (Auto) 2.0 /HPF (0.0-6.0) 03/06/17 03:09 U Epithel Cells (Auto) 1.0 /HPF (0-13.0) 03/06/17 03:09
[2017-03-08] MEDS: VANCOMYCIN 1,500 MG in NACL 0.9% 500 ML 500 ML IV SCH (01:05)
[2017-03-08] MEDS: NACL 0.9% 1000 ML 1,000 ML IV SCH (01:06)
[2017-03-08] MEDS ORDERED: TORADOL IV PRN (02:13)
[2017-03-08 05:13] LABS: Mean Corpuscular HGB Conc 32 % (30-34); Mean Corpuscular Volume 80 fl (79-97); Platelet Count 280 K/mm3 (140-440); Red Blood Count 3.86 M/mm3 (3.65-5.03); Red Cell Distribution Width 13.5 % (13.2-15.2); White Blood Count 5.9 K/mm3 (4.5-11.0)
[2017-03-08 05:14] LABS: Mean Corpuscular Hemoglobin 26 pg (28-32)
[2017-03-08] MEDS: SYNTHROID PO SCH (06:00)
[2017-03-08] MEDS: NOVOLOG SUB-Q SCH ×2 (07:30→11:30)
[2017-03-08] MEDS: DUONEB 0.5 MG-3 MG/3 ML SOLN IH SCH ×2 (08:57→13:30)
[2017-03-08] MEDS ORDERED: VANCOMYCIN 1,500 MG in NACL 0.9% 500 ML 500 ML IV SCH (10:00)
[2017-03-08] MEDS ORDERED: LEVAQUIN PO SCH (10:00)
[2017-03-08] MEDS: BABY ASPIRIN PO SCH (10:29)
[2017-03-08] MEDS: LOVENOX SUB-Q SCH (10:29)
--- NOTE | 2017-03-08 10:37 | Progress Note ---
Assessment and Plan Assessment and plan: Patient is a 46-year-old woman with a history of hypertension, hypothyroidism, pre-diabetes mellitus type II on metformin and TIA (left with stuttering though , ?TIA) approximately 3 weeks ago and strep pharyngitis status post amoxicillin for 7 days followed by course of Augmentin for another 7 days for 14 day total. Patient presents with sore throat and copious amounts of bloody urine and subjective fevers. She was found have positive Streptococcus pharyngitis. Patient stills with positive strep pharyngitis despite 14 days of penicillin and Augmentin; therefore, use Levaquin instead of Zosyn and use IV vancomycin for sepsis. Mild asthma exacerbation hold on IV steroids due to sepsis. -Sepsis due to pharyngitis: Blood cultures pending, treated with IV antibiotics , IV fluids -Hematuria with borderline blood loss acute anemia, most likely due to UTI, urine culture growing gram-negative liya: Continue current therapy await for sensitivity -Diabetes mellitus type II, she was told she was prediabetic but A1c 6 currently on metformin: Add sliding-scale -Morbid obesity BMI 40.6: Counseling lifestyle modifications -DVT prophylaxis: Subcutaneous Lovenox Full code Disposition: Once cultures come back possibly be discharged on oral antibiotics in next 1-2 days Called Micro b/c urine ctx GNR since 06 of march. History Interval history: Patient seen and examined. Follow up on hematuria which has resolved or patient hasn't noticed any more hematuria. Overnight uneventful. No cp, sob, n/v or severe headaches. Imaging, old records, testing, labs, nursing notes reviewed. Hospitalist Physical - Physical exam Narrative exam: GEN: WDWN, NAD, AWAKE, ALERT, ORIENTATED x 3 CVS: RRR, NORMAL S1S2 LUNGS/CHEST: CTA B, NORMAL CHEST EXPANSION B, GOOD AIR ENTRY B ABD: SOFT, NTND, GBS, NO REBOUND OR GUARDING EXT/SKIN: NO SIGNIFICANT EDEMA OR RASH MSK: FROM X 4 EXTREMITIES NEURO: CN 2-12 GROSSLY INTACT, NO FOCAL DEFICITS PSY: CALM - Constitutional Vitals: Temp Pulse Resp BP Pulse Ox 98.3 F 92 H 18 141/72 99 03/08/17 00:00 03/08/17 00:00 03/08/17 02:21 03/08/17 00:00 03/08/17 00:00 General appearance: Present: no acute distress Results - Labs CBC & Chem 7: 03/08/17 04:13 03/07/17 05:04 Labs: Laboratory Last Values WBC 5.9 K/mm3 (4.5-11.0) 03/08/17 04:13 RBC 3.86 M/mm3 (3.65-5.03) 03/08/17 04:13 Hgb 10.0 gm/dl (10.1-14.3) L 03/08/17 04:13 Hct 31.0 % (30.3-42.9) 03/08/17 04:13 MCV 80 fl (79-97) 03/08/17 04:13 MCH 26 pg (28-32) L 03/08/17 04:13 MCHC 32 % (30-34) 03/08/17 04:13 RDW 13.5 % (13.2-15.2) 03/08/17 04:13 Plt Count 280 K/mm3 (140-440) 03/08/17 04:13 Lymph % (Auto) 39.1 % (13.4-35.0) H 03/07/17 05:04 [place] % (Auto) 8.7 % (0.0-7.3) H 03/07/17 05:04 Eos % (Auto) 2.3 % (0.0-4.3) 03/07/17 05:04 Baso % (Auto) 0.2 % (0.0-1.8) 03/07/17 05:04 Lymph # 2.7 K/mm3 (1.2-5.4) 03/07/17 05:04 [place] # 0.6 K/mm3 (0.0-0.8) 03/07/17 05:04 Eos # 0.2 K/mm3 (0.0-0.4) 03/07/17 05:04 Baso # 0.0 K/mm3 (0.0-0.1) 03/07/17 05:04 Seg Neutrophils % 49.7 % (40.0-70.0) 03/07/17 05:04 Seg Neutrophils # 3.4 K/mm3 (1.8-7.7) 03/07/17 05:04 PT 13.8 Sec. (12.2-14.9) 03/06/17 00:23 INR 1.07 (0.87-1.13) 03/06/17 00:23 APTT 31.8 Sec. (24.2-36.6) 03/06/17 00:23 VBG pH 7.370 (7.320-7.420) 03/06/17 01:05 Sodium 141 mmol/L (137-145) 03/07/17 05:04 Potassium 3.8 mmol/L (3.6-5.0) 03/07/17 05:04 Chloride 104.6 mmol/L (98-107) 03/07/17 05:04 Carbon Dioxide 22 mmol/L (22-30) 03/07/17 05:04 Anion Gap 18 mmol/L 03/07/17 05:04 BUN 8 mg/dL (7-17) 03/07/17 05:04 Creatinine 0.7 mg/dL (0.7-1.2) 03/07/17 05:04 Estimated GFR > 60 ml/min 03/07/17 05:04 BUN/Creatinine Ratio 11.42 % 03/07/17 05:04 Glucose 136 mg/dL (65-100) H 03/07/17 05:04 POC Glucose 136 (70-105) H 03/08/17 06:27 Hemoglobin A1c 6.0 % (4-6) 03/06/17 03:17 Calcium 8.2 mg/dL (8.4-10.2) L 03/07/17 05:04 Total Bilirubin 0.60 mg/dL (0.1-1.2) 03/06/17 01:05 Direct Bilirubin < 0.2 mg/dL (0-0.2) 03/06/17 01:05 Indirect Bilirubin 0.4 mg/dL 03/06/17 01:05 AST 32 units/L (5-40) 03/06/17 01:05 ALT 44 units/L (7-56) 03/06/17 01:05 Alkaline Phosphatase 127 units/L (35-129) 03/06/17 01:05 Total Creatine Kinase 155 units/L (30-135) H 03/06/17 00:23 CK-MB (CK-2) < 1.0 ng/mL (0.0-4.0) 03/06/17 00:23 CK-MB (CK-2) Rel Index 0.6 (0-4) 03/06/17 00:23 Troponin T < 0.010 ng/mL (0.00-0.029) 03/06/17 06:07 Total Protein 9.1 g/dL (6.3-8.2) H 03/06/17 01:05 Albumin 4.4 g/dL (3.9-5) 03/06/17 01:05 Albumin/Globulin Ratio 0.9 % 03/06/17 01:05 Lipase 42 units/L (13-60) 03/06/17 01:05 TSH 0.233 mlU/mL (0.270-4.200) L 03/06/17 00:23 Free T4 1.34 ng/dL (0.76-1.46) 03/06/17 00:23 Urine Color Yellow (Yellow) 03/06/17 03:09 Urine Turbidity Clear (Clear) 03/06/17 03:09 Urine pH 6.0 (5.0-7.0) 03/06/17 03:09 Ur Specific [place] 1.009 (1.003-1.030) 03/06/17 03:09 Urine Protein <15 mg/dl mg/dL (Negative) 03/06/17 03:09 Urine Glucose (UA) Neg mg/dL (Negative) 03/06/17 03:09 Urine Ketones Neg mg/dL (Negative) 03/06/17 03:09 Urine Blood Sm (Negative) 03/06/17 03:09 Urine Nitrite Neg (Negative) 03/06/17 03:09 Urine Bilirubin Neg (Negative) 03/06/17 03:09 Urine Urobilinogen < 2.0 mg/dL (<2.0) 03/06/17 03:09 Ur Leukocyte Esterase Neg (Negative) 03/06/17 03:09 Urine WBC (Auto) 1.0 /HPF (0.0-6.0) 03/06/17 03:09 Urine RBC (Auto) 2.0 /HPF (0.0-6.0) 03/06/17 03:09 U Epithel Cells (Auto) 1.0 /HPF (0-13.0) 03/06/17 03:09
--- NOTE | 2017-03-08 10:46 | Discharge Summary ---
Providers - Providers Date of Admission: 03/06/17 10:13 Date of discharge: 03/08/17 Attending physician: YOSELIN BAE Primary care physician: PHYSICIAN/OPHTHALMOLOGIST Hospitalization Condition: Stable Hospital course: Patient is a 46-year-old woman with a history of hypertension, hypothyroidism, pre-diabetes mellitus type II on metformin and TIA (left with stuttering though , ?TIA) approximately 3 weeks ago and strep pharyngitis status post amoxicillin for 7 days followed by course of Augmentin for another 7 days for 14 day total. Patient presents with sore throat and copious amounts of bloody urine and subjective fevers. She was found have positive Streptococcus pharyngitis. Patient stills with positive strep pharyngitis despite 14 days of penicillin and Augmentin; therefore, use Levaquin instead of Zosyn and use IV vancomycin for sepsis. Mild asthma exacerbation hold on IV steroids due to sepsis. -Sepsis due to pharyngitis: Blood cultures pending, treated with IV antibiotics , IV fluids -Hematuria with borderline blood loss acute anemia, most likely due to UTI, urine culture growing gram-negative liya: Continue current therapy await for sensitivity -Diabetes mellitus type II, she was told she was prediabetic but A1c 6 currently on metformin: Add sliding-scale -Morbid obesity BMI 40.6: Counseling lifestyle modifications -DVT prophylaxis: Subcutaneous Lovenox Full code Disposition: Once cultures come back possibly be discharged on oral antibiotics in next 1-2 days Called Micro b/c urine ctx GNR since 06 of march===>E. coli resistance to amoxicillin, d/c home on cipro or levaquin Disposition: DC-01 TO HOME OR SELFCARE Time spent for discharge: 40 minutes Core Measure Documentation - Palliative Care Palliative Care/ Comfort Measures: Not Applicable - Core Measures Any of the following diagnoses?: none - VTE Discharge Requirements Deep Vein Thrombosis/Pulmonary Embolism Present on Admission: No Has pt received <5 days of overlap therapy or INR<2.0: No Anticoagulant overlap therapy prescribed at discharge: No Contraindication No Overlap Therapy order at DC: Not Indicated Exam - Physical Exam Narrative exam: GEN: WDWN, NAD, AWAKE, ALERT, ORIENTATED x 3 CVS: RRR, NORMAL S1S2 LUNGS/CHEST: CTA B, NORMAL CHEST EXPANSION B, GOOD AIR ENTRY B ABD: SOFT, NTND, GBS, NO REBOUND OR GUARDING EXT/SKIN: NO SIGNIFICANT EDEMA OR RASH MSK: FROM X 4 EXTREMITIES NEURO: CN 2-12 GROSSLY INTACT, NO FOCAL DEFICITS PSY: CALM - Constitutional Vitals: Temp Pulse Resp BP Pulse Ox 98.3 F 92 H 18 141/72 99 03/08/17 00:00 03/08/17 00:00 03/08/17 02:21 03/08/17 00:00 03/08/17 00:00 Plan Activity: other (no strenous activites until cleared by PCP. ) Diet: low salt Durable Medical Equipment Needed Upon Discharge: Nebulizer Follow up with: PRIMARY CARE, [Primary Care Provider] - 3-5 Days Prescriptions: Levofloxacin [Levaquin TAB] 500 mg PO Q24HR #5 tablet Ipratropium/Albuterol Sulfate [Duoneb 0.5 mg-3 mg/3 ml Soln] 1 ampul IH TIDRT PRN #30 ampul.neb PRN Reason: Shortness Of Breath
[2017-03-08 11:11] VITALS: BP 139/87
[2017-03-08] MEDS: LOPRESSOR PO SCH (13:47)
== END 2017-03-08 14:15 | disposition home or self-care (01) | DRG 872 ==
LOC: ED 23:20 → 3A 03-06 10:13
PROVIDERS: ADMIT Internal Medicine; ATTEND Internal Medicine
DX: A41.9 Sepsis, unspecified organism (principal); J45.901 Unspecified asthma with (acute) exacerbation; D62 Acute posthemorrhagic anemia; N39.0 Urinary tract infection, site not specified; Z68.41 Body mass index [BMI] 40.0-44.9, adult; R31.9 Hematuria, unspecified; I10 Essential (primary) hypertension; E03.9 Hypothyroidism, unspecified; E11.9 Type 2 diabetes mellitus without complications; B96.20 Unspecified Escherichia coli [E. coli] as the cause of diseases classified elsewhere; J02.0 Streptococcal pharyngitis; E66.01 Morbid (severe) obesity due to excess calories; Z86.73 Personal history of transient ischemic attack (TIA), and cerebral infarction without residual deficits; Z90.49 Acquired absence of other specified parts of digestive tract; Z90.710 Acquired absence of both cervix and uterus; Z88.1 Allergy status to other antibiotic agents; Z82.49 Family history of ischemic heart disease and other diseases of the circulatory system
CPT/HCPCS: 36415; 70450; 70491; 71010; 74177; 80048; 80074; 81001; 82550; 82553; 82805; 82962; 83036; 83690; 84439; 84443; 84484; 85025; 85027; 85610; 85730; 87040; 87076; 87086; 87186; 87430; 90732; 93005; 93010; 94640; 94644; J1650; J1885; J1956; J2270; J2405; J2930; J3370; J7030; J7040; Q9967

== ENCOUNTER 2017-09-13 19:07 | Emergency (ER) | payer SELFPAY ==
[2017-09-13 20:30] LABS: Basophils % (Auto) 0.3 % (0.0-1.8); Eosinophils % (Auto) 1.6 % (0.0-4.3); Hematocrit 39.8 % (30.3-42.9); Lymphocytes % (Auto) 19.5 % (13.4-35.0); Mean Corpuscular HGB Conc 33 % (30-34); Mean Corpuscular Hemoglobin 27 pg (28-32); Mean Corpuscular Volume 81 fl (79-97); Monocytes % (Auto) 5.9 % (0.0-7.3); Platelet Count 339 K/mm3 (140-440); Red Cell Distribution Width 13.9 % (13.2-15.2)
[2017-09-13 20:31] LABS: Eosinophils # (Auto) 0.1 K/mm3 (0.0-0.4); Lymphocytes # (Auto) 1.3 K/mm3 (1.2-5.4); Monocytes # (Auto) 0.4 K/mm3 (0.0-0.8)
[2017-09-13 20:45] LABS: BUN/Creatinine Ratio 15; Blood Urea Nitrogen 12 mg/dL (7-17); Calcium 9.1 mg/dL (8.4-10.2); Hemolysis Index 6
[2017-09-13] MEDS ORDERED: PROVENTIL IH ONE (22:13)
[2017-09-13] MEDS ORDERED: XOPENEX IH ONE (22:15)
--- NOTE | 2017-09-13 23:59 | XRay Report ---
FINAL REPORT PROCEDURE: AP and lateral chest x-ray TECHNIQUE: AP and lateral chest radiographs were obtained. CPT 43541 HISTORY: Shortness of breath COMPARISON: No prior studies are available for comparison. FINDINGS: Heart: Normal. Mediastinum/Vessels: Normal. Lungs/Pleural space: Normal. Bony thorax: No acute osseous abnormality. Other: IMPRESSION: Negative examination.
[2017-09-14 10:32] VITALS: BP 159/92
[2017-09-14] MEDS ORDERED: NACL 0.9% 1000 ML 1,000 ML IV ONE (11:04)
[2017-09-14] MEDS ORDERED: TORADOL IV ONE (11:04)
[2017-09-14] MEDS ORDERED: TESSALON PERLES PO ONE (11:05)
[2017-09-14 11:31] LABS: Bilirubin,Urine NEG (Negative); Blood,Urine SM (Negative); Color,Urine Straw (Yellow); Nitrite,Urine NEG (Negative); Urobilinogen,Urine < 2.0 mg/dL (<2.0)
--- NOTE | 2017-09-14 15:11 | Cat Scan Report ---
CTA CHEST: HISTORY: Cough, shortness of breath. COMPARISON: none. TECHNIQUE: Helical CT in 1.25mm intervals following IV contrast. Pulmonary embolus protocol. Sagittal and coronal reformatted images. Rotational MIP images. FINDINGS: Contrast bolus is satisfactory. No pulmonary embolus is identified. Thyroid gland: Normal. Tracheobronchial tree: Normal. Esophagus: Normal. Heart: Normal. Pericardium: Normal. Mediastinum: Normal. Lung Paula: normal. Pleural Spaces: Normal. Musculoskeletal: Normal. IMPRESSION: No evidence for pulmonary embolus. Unremarkable CT chest with contrast.
--- NOTE | 2017-09-14 15:58 | Emergency Department Report ---
ED Shortness of Breath HPI - General Chief Complaint: Dyspnea/Respdistress Stated Complaint: FEVER,SOB,PALPITATIONS Time Seen by Provider: 09/14/17 10:59 Source: patient Mode of arrival: Ambulatory Limitations: No Limitations - History of Present Illness Initial Comments: Patient is a 47-year-old Female with a past medical history of hypertension and asthma as well as diabetes who is presenting with cough congestion the past 2 days. Patient states she has a deep cough with wheezing. Patient's had a fever as well at home that is subjective. Patient also is having some discomfort when she coughs in the right flank. Patient states pain is 3 out of 10 in severity and does not radiate. MD Complaint: shortness of breath, cough Consistency: constant Improves With: nothing Worsens With: movement Associated Symptoms: fever, cough, sputum production - Related Data Home Medications Medication Instructions Recorded Confirmed Last Taken Topiramate 25 mg PO BID 03/06/17 03/06/17 03/04/17 metFORMIN 500 mg PO BID 03/06/17 03/06/17 03/04/17 Previous Rx's Medication Instructions Recorded Last Taken Type Aspirin [Aspirin BABY CHEW TAB] 81 mg PO QDAY #30 tab.chew 12/18/14 03/06/17 Rx Metoprolol [Lopressor TAB] 6.25 mg PO BID #60 tablet 12/18/14 03/06/17 Rx traMADol [Ultram 50 MG tab] 50 mg PO Q4HR PRN #20 tablet 10/13/15 Unknown Rx Cyclobenzaprine [Flexeril 10 MG 10 mg PO TID PRN #14 tablet 08/19/16 Unknown Rx TAB] HYDROcodone/APAP 5-325 [[place] 1 - 2 each PO Q6HR PRN #14 tablet 08/19/16 Unknown Rx 5-325 mg TAB] Acetaminophen [Acetaminophen TAB] 325 mg PO Q4H PRN #30 tablet 03/08/17 Unknown Rx Ipratropium/Albuterol Sulfate 1 ampul IH TIDRT PRN #30 ampul.neb 03/08/17 Unknown Rx [DUONEB *Not for PRN Use*] Levofloxacin [Levaquin TAB] 500 mg PO Q24HR #5 tablet 03/08/17 Unknown Rx Levothyroxine [Synthroid] 25 mcg PO DAILY@0600 tablet 03/08/17 Unknown Rx ALBUTEROL Inhaler [ProAir HFA 2 puff IH QID PRN #1 inhalation 09/14/17 Unknown Rx Inhaler] Benzonatate [Tessalon Perle] 100 mg PO TID #15 capsule 09/14/17 Unknown Rx Doxycycline [Vibramycin] 100 mg PO Q12HR #14 capsule 09/14/17 Unknown Rx HYDROcodone/APAP 5-325 [[place] 1 each PO Q4HR PRN #15 tablet 09/14/17 Unknown Rx 5/325] Allergies Allergy/AdvReac Type Severity Reaction Status Date / Time clindamycin Allergy Rash Verified 07/26/13 09:19 ED Review of Systems ROS: Stated complaint: FEVER,SOB,PALPITATIONS Other details as noted in HPI Comment: All other systems reviewed and negative ED Past Medical Hx - Past Medical History Hx Hypertension: Yes Hx CVA: Yes ("TIA" with persistent dysarthria) Hx Congestive Heart Failure: No Hx Diabetes: Yes Hx Arthritis: Yes Hx Asthma: Yes Hx COPD: No Additional medical history: Multiple myeloma - Surgical History Hx Appendectomy: Yes (1997) Hx Breast Surgery: (colon surgery lumpectomy) Additional Surgical History: partial hysterectomy. x 2. - Social History Smoking Status: Never Smoker Substance Use Type: None - Medications Home Medications: Home Medications Medication Instructions Recorded Confirmed Last Taken Type Aspirin [Aspirin BABY CHEW TAB] 81 mg PO QDAY #30 tab.chew 12/18/14 03/06/1712/18 Rx Metoprolol [Lopressor TAB] 6.25 mg PO BID #60 tablet 12/18/14 03/06/17 03/06/17 Rx traMADol [Ultram 50 MG tab] 50 mg PO Q4HR PRN #20 tablet 10/13/15 03/06/17 Unknown Rx Cyclobenzaprine [Flexeril 10 MG 10 mg PO TID PRN #14 tablet 08/19/16 03/06/17 Unknown Rx TAB] HYDROcodone/APAP 5-325 [[place] 1 - 2 each PO Q6HR PRN #14 tablet 08/19/16 Unknown Rx 5-325 mg TAB] Topiramate 25 mg PO BID 03/06/17 03/06/17 03/04/17 History metFORMIN 500 mg PO BID 03/06/17 03/06/17 03/04/17 History Acetaminophen [Acetaminophen TAB] 325 mg PO Q4H PRN #30 tablet 03/08/17 Unknown Rx Ipratropium/Albuterol Sulfate 1 ampul IH TIDRT PRN #30 ampul.neb 03/08/17 Unknown Rx [DUONEB *Not for PRN Use*] Levofloxacin [Levaquin TAB] 500 mg PO Q24HR #5 tablet 03/08/17 Unknown Rx Levothyroxine [Synthroid] 25 mcg PO DAILY@0600 tablet 03/08/17 Unknown Rx ALBUTEROL Inhaler [ProAir HFA 2 puff IH QID PRN #1 inhalation 09/14/17 Unknown Rx Inhaler] Benzonatate [Tessalon Perle] 100 mg PO TID #15 capsule 09/14/17 Unknown Rx Doxycycline [Vibramycin] 100 mg PO Q12HR #14 capsule 09/14/17 Unknown Rx HYDROcodone/APAP 5-325 [[place] 1 each PO Q4HR PRN #15 tablet 09/14/17 Unknown Rx 5/325] ED Physical Exam - General Limitations: No Limitations General appearance: alert, in no apparent distress - Head Head exam: Present: atraumatic, normocephalic - Eye Eye exam: Present: normal appearance - ENT ENT exam: Present: mucous membranes moist - Neck Neck exam: Present: normal inspection - Respiratory Respiratory exam: Present: normal lung sounds bilaterally. Absent: respiratory distress, wheezes, rales, rhonchi - Cardiovascular Cardiovascular Exam: Present: normal rhythm, tachycardia. Absent: systolic murmur, diastolic murmur, rubs, gallop - GI/Abdominal GI/Abdominal exam: Present: soft, normal bowel sounds - Extremities Exam Extremities exam: Present: normal inspection - Back Exam Back exam: Present: normal inspection - Neurological Exam Neurological exam: Present: alert, oriented X3 - Psychiatric Psychiatric exam: Present: normal affect, normal mood - Skin Skin exam: Present: warm, dry, intact, normal color. Absent: rash ED Course Vital Signs 09/13/17 09/14/17 09/14/17 19:48 03:24 03:25 Temperature 100.8 F H 98.7 F Pulse Rate 159 H 114 H 116 H Respiratory 20 18 Rate Blood Pressure 208/108 158/107 Blood Pressure [Right] O2 Sat by Pulse 99 98 98 Oximetry 09/14/17 08:50 Temperature 98.7 F Pulse Rate 117 H Respiratory 18 Rate Blood Pressure Blood Pressure 159/92 [Right] O2 Sat by Pulse 100 Oximetry ED Medical Decision Making - Lab Data Result diagrams: 09/13/17 20:06 09/13/17 20:06 Lab Results 09/13/17 09/13/17 09/14/17 Range/Units 20:06 20:06 10:10 WBC 6.5 (4.5-11.0) K/mm3 RBC 4.90 (3.65-5.03) M/mm3 Hgb 13.0 (10.1-14.3) gm/dl Hct 39.8 (30.3-42.9) % MCV 81 (79-97) fl MCH 27 L (28-32) pg MCHC 33 (30-34) % RDW 13.9 (13.2-15.2) % Plt Count 339 (140-440) K/mm3 Lymph % (Auto) 19.5 (13.4-35.0) % [place] % (Auto) 5.9 (0.0-7.3) % Eos % (Auto) 1.6 (0.0-4.3) % Baso % (Auto) 0.3 (0.0-1.8) % Lymph # 1.3 (1.2-5.4) K/mm3 [place] # 0.4 (0.0-0.8) K/mm3 Eos # 0.1 (0.0-0.4) K/mm3 Baso # 0.0 (0.0-0.1) K/mm3 Seg Neutrophils % 72.7 H (40.0-70.0) % Seg Neutrophils # 4.7 (1.8-7.7) K/mm3 D-Dimer (0-234) ng/mlDDU Sodium 138 (137-145) mmol/L Potassium 4.1 (3.6-5.0) mmol/L Chloride 97.7 L (98-107) mmol/L Carbon Dioxide 25 (22-30) mmol/L Anion Gap 19 mmol/L BUN 12 (7-17) mg/dL Creatinine 0.8 (0.7-1.2) mg/dL Estimated GFR > 60 ml/min BUN/Creatinine Ratio 15 % Glucose 127 H (65-100) mg/dL Calcium 9.1 (8.4-10.2) mg/dL Troponin T < 0.010 (0.00-0.029) ng/mL Urine Color [place] (Yellow) Urine Turbidity Clear (Clear) Urine pH 6.0 (5.0-7.0) Ur Specific [place] 1.009 (1.003-1.030) Urine Protein 100 mg/dl (Negative) mg/dL Urine Glucose (UA) Neg (Negative) mg/dL Urine Ketones Neg (Negative) mg/dL Urine Blood Sm (Negative) Urine Nitrite Neg (Negative) Urine Bilirubin Neg (Negative) Urine Urobilinogen < 2.0 (<2.0) mg/dL Ur Leukocyte Esterase Neg (Negative) Urine WBC (Auto) 2.0 (0.0-6.0) /HPF Urine RBC (Auto) 3.0 (0.0-6.0) /HPF U Epithel Cells (Auto) 1.0 (0-13.0) /HPF 09/14/17 Range/Units Unknown WBC (4.5-11.0) K/mm3 RBC (3.65-5.03) M/mm3 Hgb (10.1-14.3) gm/dl Hct (30.3-42.9) % MCV (79-97) fl MCH (28-32) pg MCHC (30-34) % RDW (13.2-15.2) % Plt Count (140-440) K/mm3 Lymph % (Auto) (13.4-35.0) % [place] % (Auto) (0.0-7.3) % Eos % (Auto) (0.0-4.3) % Baso % (Auto) (0.0-1.8) % Lymph # (1.2-5.4) K/mm3 [place] # (0.0-0.8) K/mm3 Eos # (0.0-0.4) K/mm3 Baso # (0.0-0.1) K/mm3 Seg Neutrophils % (40.0-70.0) % Seg Neutrophils # (1.8-7.7) K/mm3 D-Dimer 409.58 H (0-234) ng/mlDDU Sodium (137-145) mmol/L Potassium (3.6-5.0) mmol/L Chloride (98-107) mmol/L Carbon Dioxide (22-30) mmol/L Anion Gap mmol/L BUN (7-17) mg/dL Creatinine (0.7-1.2) mg/dL Estimated GFR ml/min BUN/Creatinine Ratio % Glucose (65-100) mg/dL Calcium (8.4-10.2) mg/dL Troponin T (0.00-0.029) ng/mL Urine Color (Yellow) Urine Turbidity (Clear) Urine pH (5.0-7.0) Ur Specific [place] (1.003-1.030) Urine Protein (Negative) mg/dL Urine Glucose (UA) (Negative) mg/dL Urine Ketones (Negative) mg/dL Urine Blood (Negative) Urine Nitrite (Negative) Urine Bilirubin (Negative) Urine Urobilinogen (<2.0) mg/dL Ur Leukocyte Esterase (Negative) Urine WBC (Auto) (0.0-6.0) /HPF Urine RBC (Auto) (0.0-6.0) /HPF U Epithel Cells (Auto) (0-13.0) /HPF - Medical Decision Making Is a 47-year-old [place] female who is presenting with a cough, congestion. Patient was tachycardic on arrival in the 150s however this is steadily trended downward. Patient did receive IV fluids and was 105 heart rate at the time of discharge. Patient also presented with elevated blood pressure this improved. PATIENT BECAUSE OF THE SLIGHTLY ELEVATED D-DIMER THAT THE PATIENT HAD had a CT angiogram ordered this was negative for PE. No pneumonia seen. Patient diagnosed with acute bronchitis and will be sent home with symptomatic relief. Critical care attestation.: If time is entered above; I have spent that time in minutes in the direct care of this critically ill patient, excluding procedure time. ED Disposition Clinical Impression: Tachycardia Acute bronchitis Qualifiers: Bronchitis organism: other organism Qualified Code(s): J20.8 - Acute bronchitis due to other specified organisms Hypertension Qualifiers: Hypertension type: unspecified Qualified Code(s): I10 - Essential (primary) hypertension Disposition: DC-01 TO HOME OR SELFCARE Is pt being admited?: No Does the pt Need Aspirin: No Condition: Stable Instructions: Acute Bronchitis (ED), Hypertension (ED) Prescriptions: ALBUTEROL Inhaler [ProAir HFA Inhaler] 2 puff IH QID PRN #1 inhalation PRN Reason: Shortness Of Breath Benzonatate [Tessalon Perle] 100 mg PO TID #15 capsule Doxycycline [Vibramycin] 100 mg PO Q12HR #14 capsule HYDROcodone/APAP 5-325 [[place] 5/325] 1 each PO Q4HR PRN #15 tablet PRN Reason: Pain Referrals: PRIMARY CARE, [Primary Care Provider] - 3-5 Days
== END 2017-09-14 16:51 | disposition home or self-care (01) ==
LOC: ED 19:07
DX: J20.8 Acute bronchitis due to other specified organisms (principal); I10 Essential (primary) hypertension; R00.0 Tachycardia, unspecified; E11.9 Type 2 diabetes mellitus without complications; J45.909 Unspecified asthma, uncomplicated
CPT/HCPCS: 36415; 71046; 71275; 80048; 81001; 84484; 85025; 85379; 93005; 93010; 96361; 96374; 96375; 99285; J1885; J2930; J7030; Q9967

== ENCOUNTER 2018-05-29 06:13 | Observation (INO) | payer MEDICARE ==
[2018-05-24 09:59] LABS: Hematocrit 36.4 % (30.3-42.9); Mean Corpuscular HGB Conc 33 % (30-34); Mean Corpuscular Hemoglobin 27 pg (28-32); Mean Corpuscular Volume 82 fl (79-97); Platelet Count 342 K/mm3 (140-440); Red Blood Count 4.44 M/mm3 (3.65-5.03); Red Cell Distribution Width 13.4 % (13.2-15.2)
[2018-05-24 10:00] LABS: BUN/Creatinine Ratio 15; Basophils % (Auto) 0.5 % (0.0-1.8); Blood Urea Nitrogen 12 mg/dL (7-17); Calcium 8.7 mg/dL (8.4-10.2); Eosinophils # (Auto) 0.1 K/mm3 (0.0-0.4); Eosinophils % (Auto) 1.7 % (0.0-4.3); Hemolysis Index 13; Lymphocytes # (Auto) 2.1 K/mm3 (1.2-5.4); Lymphocytes % (Auto) 41.3 % (13.4-35.0); Monocytes # (Auto) 0.3 K/mm3 (0.0-0.8); Monocytes % (Auto) 5.3 % (0.0-7.3)
--- NOTE | 2018-05-24 10:06 | Anesthesia Consultation ---
Anesthesia Consult and Med Hx Date of service: 05/24/18 - Airway Anesthetic Teeth Evaluation: Crowns, Partials (upper) ROM Head & Neck: Adequate Mental/Hyoid Distance: Adequate Mallampati Class: Class I Intubation Access Assessment: Probably Good - Pulmonary Exam CTA: Yes - Cardiac Exam Cardiac Exam: RRR - Pre-Operative Health Status ASA Pre-Surgery Classification: ASA3 Proposed Anesthetic Plan: General Nerve Block: TAP Block - Pre-Anesthesia Comment Pre-Anesthesia Comments: h/o PONV - Pulmonary Hx Asthma: Yes (Last treated a "few months" ago) COPD: No Hx Pneumonia: No - Cardiovascular System Hx Hypertension: Yes (over 19 years) - Central Nervous System 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
[~2018-05-29 06:13] MED LIST: PEPCID PO NR; VERSED IV NR
[2018-05-29] MEDS ORDERED: DEMEROL IV PRN (07:07)
[2018-05-29] MEDS ORDERED: ZOFRAN IV PRN ×2 (07:07→11:02)
[2018-05-29] MEDS ORDERED: DILAUDID IV PRN (07:07)
[2018-05-29] MEDS ORDERED: TORADOL IV PRN (07:07)
--- NOTE | 2018-05-29 07:48 | Anesthesia Day of Surgery ---
Anesthesia Day of Surgery - Day of Surgery Patient Examined: Yes Patient H&P Reviewed: Yes Patient is NPO: Yes
[2018-05-29] MEDS ORDERED: NEURONTIN PO NR (08:00)
[2018-05-29] MEDS ORDERED: VERSED IV NR (08:00)
[2018-05-29] MEDS ORDERED: TRANSDERM-SCOP TD NR (08:00)
[2018-05-29] MEDS ORDERED: LACTATED RINGERS 1,000 ML IV SCH ×2 (08:00→10:00)
--- NOTE | 2018-05-29 08:12 | History and Physical Report ---
History of Present Illness Date of examination: 05/29/18 Chief complaint: Left adnexal mass History of present illness: 48y/o with findings of a left multiloculated adnexal mass. The patient reports worsening pelvic pain and discomfort. She elects for surgical management. Past History Past Medical History: diabetes, thyroid disease, other (depression) Past Surgical History: appendectomy, section, other ([facility]; right salpingoophorectomy; ) Social history: single - Obstetrical History : 2 Para: 2 Hx # Term Pregnancies: 2 Number of Pregnancies: 0 Spontaneous Abortions: 0 Induced : 0 Number of Living Children: 2 Medications and Allergies Allergies Allergy/AdvReac Type Severity Reaction Status Date / Time clindamycin Allergy Rash Verified 05/21/18 10:49 Home Medications Medication Instructions Recorded Confirmed Last Taken Type metFORMIN 500 mg PO DAILY 03/06/17 05/21/18 03/04/17 History Ipratropium/Albuterol Sulfate 1 ampul IH TIDRT PRN #30 ampul.neb 03/08/17 Unknown Rx [DUONEB *Not for PRN Use*] HYDROcodone/APAP 5-325 [[place] 1 each PO Q4HR PRN #15 tablet 09/14/17 05/21/18 Unknown Rx 5/325] Albuterol Sulfate [Ventolin HFA] 2 puff IH Q4H PRN 05/21/18 05/21/18 Unknown History Escitalopram [Lexapro] 10 mg PO DAILY 05/21/18 05/21/18 Unknown History Estradiol 2 mg PO DAILY 05/21/18 05/21/18 Unknown History Ipratropium/Albuterol Sulfate 1 ampul IH Q4HR PRN 05/21/18 05/21/18 Unknown History [DUONEB *Not for PRN Use*] Levothyroxine [Synthroid] 25 mcg PO DAILY 05/21/18 05/21/18 Unknown History Metoprolol [Lopressor TAB] 50 mg PO BID 05/21/18 05/21/18 Unknown History Tolterodine Tartrate [Detrol LA] 4 mg PO DAILY 05/21/18 05/21/18 Unknown History traZODone [Desyrel] 50 mg PO QHS 05/21/18 05/21/18 Unknown History Active Meds: Active Medications Celecoxib (Celebrex) 200 mg PO PREOP NR Stop: 05/29/18 20:00 Gabapentin (Neurontin) 300 mg PO PREOP NR Stop: 05/29/18 20:00 Hydromorphone HCl (Dilaudid) 0.5 mg IV Q10MIN PRN PRN Reason: Pain , Severe (7-10) Stop: 05/29/18 20:00 Lactated Ringer's (Lactated Ringers) 1,000 mls @ 100 mls/hr IV DIRECT TIM Lactated Ringer's (Lactated Ringers) 1,000 mls @ 100 mls/hr IV DIRECT TIM Stop: 05/29/18 10:00 Ketorolac Tromethamine (Toradol) 30 mg IV ONCE PRN PRN Reason: Pain, Moderate (4-6) Meperidine HCl (Demerol) 25 mg IV ONCE PRN PRN Reason: Shivering Midazolam HCl (Versed) 2 mg IV PREOP NR Stop: 05/29/18 23:59 Ondansetron HCl (Zofran) 4 mg IV ONCE PRN PRN Reason: Nausea And Vomiting Scopolamine (Transderm-Scop) 1 each TD PREOP NR Stop: 05/29/18 12:00 Review of Systems All systems: negative Genitourinary: pelvic pain - Vital Signs Vital signs: Vital Signs Temp Pulse Resp BP 98.2 F 80 20 118/88 05/24/18 09:30 05/24/18 09:30 05/24/18 09:30 05/24/18 09:30 Temp Pulse Resp BP Pulse Ox 98.2 F 80 20 118/88 05/24/18 09:30 05/24/18 09:30 05/24/18 09:30 05/24/18 09:30 - Physical Exam Breasts: Positive: deferred Cardiovascular: Regular rate Lungs: Positive: Clear to auscultation Abdomen: Positive: normal appearance Results Result Diagrams: 05/24/18 09:35 05/24/18 09:35 All other labs normal. Assessment and Plan - Patient Problems (1) Adnexal mass Current Visit: Yes Status: Acute Plan to address problem: robotic assisted left salpingoophorectomy and lysis of adhesions (2) Chronic pelvic pain in female Current Visit: Yes Status: Acute
[2018-05-29] MEDS ORDERED: ANCEF/STERILE WATER 2 GM/20 ML 2 GM/20 ML SYRINGE IV SCH (08:30)
[2018-05-29] MEDS ORDERED: SUBLIMAZE ONE (08:47)
[2018-05-29] MEDS ORDERED: DIPRIVAN 10 MG/ML IV ONE (08:49)
[2018-05-29] MEDS ORDERED: DILAUDID ONE (09:32)
[2018-05-29] MEDS ORDERED: THROMBIN (BOVINE) TP ONE ×2 (09:54→10:03)
[2018-05-29] MEDS ORDERED: GELFOAM POWDER 1GM MM ONE ×2 (09:54→10:03)
[2018-05-29] MEDS ORDERED: MARCAINE 0.5% INFILTRATI ONE ×2 (09:59→10:04)
[2018-05-29] MEDS ORDERED: NACL 0.9% IR ONE ×2 (10:02)
[2018-05-29] MEDS ORDERED: ROBINUL ONE (10:06)
[2018-05-29] MEDS ORDERED: XYLOCAINE MPF 2% ONE (10:06)
[2018-05-29] MEDS ORDERED: ZOFRAN ONE (10:09)
--- NOTE | 2018-05-29 11:01 | Operative Report ---
Operative Report Operative Report: Date of surgery: 05/29/2018 Preoperative diagnoses: Left multiloculated adnexal mass; chronic pelvic pain Postoperative diagnoses: Same as above; dense pelvic adhesions Procedure: Robotic -assisted left salpingo-oophorectomy; extensive lysis of adhesions Surgeon: Kaylyn Pollack M.D. Entry Examiner: Erendira Siddiqui Anesthesia: Gen. endotracheal anesthesia Estimated blood loss: 75 mL Pathology: Left adnexal mass; ovarian cyst fluid Indication: 48-year-old 002 with a history of persistent left multiloculated adnexal mass. The patient reported worsening of her pelvic pain and elected to undergo surgical management of the mass. Procedure: The patient was taken to the operating room and given general endotracheal anesthesia without complication. She is prepped and draped in a normal sterile fashion. A sponge stick was placed on the patient's vagina. Attention was then turned to the patient's abdomen where a 12millimeter supra umbilical skin incision was then made. A Veress needle was placed and peritoneal entry was verified water-filled syringe. Insufflation of the peritoneal cavity was performed with CO2 gas. The 12 mm trocar was then placed under direct visualization. An additional 8 mm trocar was placed on the patient's left and right lateral side just opposite of the supraumbilical trocar. An additional 10 mm right lateral trocar was then placed as the accessory port. The patient was then placed in steep Trendelenburg. The da Joshua robot was then engaged. A fenestrated forcep was placed in arm 2 and a monopolar scissors were placed in arm 1. The surgeon then transferred to the surgical console. The patient was noted to have multiple omental and bowel adhesions to the anterior abdominal wall. Monopolar scissors had to be used in order to lyse the adhesions to improve visualization. It was noted that the left adnexa was densely adherent to the left pelvic sidewall. Extensive lysis of adhesions had to be performed in order to mobilize the left adnexal mass which is noted to be cystic and multiloculated. Once the mass was isolated the infundibulopelvic ligament was identified coagulated and transected. An Endo Catch bag was placed through the 10 mm accessory port. The intact cystic mass was placed in the Endo Catch bag. The cystotomy was performed of the cystic mass while in the Endo Catch bag. The ovarian fluid was clear and was sent to pathology to review the cytology. Remainder of the cystic fluid was removed from the mass in order to decompress the mass for passage through the 10 mm trocar. The mass was removed from the Endo Catch bag intact. Irrigation of the pelvis was performed. Gelfoam with thrombin and also with the was applied to the surgical sites. The supraumbilical 12 mm and 10 mm trocar sites were closed with the Hector White device. The skin was then reapproximated with 4 -0 Monocryl. The tissue was sent to pathology which included the left adnexa. The patient was then successfully extubated. She was then taken to the recovery room in stable condition. All sponge laps and needle counts were correct x2.
[2018-05-29] MEDS ORDERED: MILK OF MAGNESIA PO PRN (11:02)
[2018-05-29] MEDS ORDERED: MOTRIN PO PRN (11:02)
[2018-05-29] MEDS ORDERED: PROVENTIL IH ONE (11:22)
[2018-05-29] MEDS ORDERED: DECADRON ONE (11:36)
--- NOTE | 2018-05-29 11:47 | Post Anesthesia Evaluation ---
- Post Anesthesia Evaluation Patient Participated: Yes Airway Patent: Yes Stable Respiratory Function: Yes Nausea/Vomiting: No Temp > 96.8F: Yes Pain Manageable: Yes Adequeate Hydration: Yes Anesthesia Complications: No
[2018-05-29] MEDS ORDERED: DEMEROL ONE (11:51)
[2018-05-29] MEDS ORDERED: D5LR 1,000 ML IV SCH (12:00)
[2018-05-29] MEDS: TORADOL IV SCH ×2 (21:12→21:24)
[2018-05-29] MEDS: PERCOCET 5/325 PO PRN (21:19)
[2018-05-30] MEDS: TORADOL IV SCH ×3 (00:52→11:02)
[2018-05-30 03:22] LABS: Hematocrit 31.2 % (30.3-42.9); Hemoglobin 10.1 gm/dl (10.1-14.3)
--- NOTE | 2018-05-30 08:18 | Progress Note ---
Assessment and Plan - Patient Problems (1) Adnexal mass Current Visit: Yes Status: Acute Plan to address problem: Patient doing well Discharge home (2) Chronic pelvic pain in female Current Visit: Yes Status: Acute Subjective - Subjective Date of service: 05/30/18 Interval history: Patient Y well. Patient is tolerating her diet without complication. The details of the surgery were explained to the patient. Patient reports: appetite normal, voiding normally, pain well controlled Objective - Vital Signs Latest vital signs: Vital Signs Temp Pulse Resp BP BP Pulse Ox 05/30/18 01:34 98.3 F 90 18 96/59 96 05/29/18 21:16 98.4 F 109 H 18 118/70 95 05/29/18 17:40 98.5 F 82 16 122/72 99 05/29/18 12:45 98.0 F 96 H 21 124/66 99 05/29/18 12:30 85 19 124/66 100 05/29/18 12:15 93 H 20 138/74 95 05/29/18 12:00 89 14 178/93 96 05/29/18 11:51 18 05/29/18 11:45 108 H 23 161/88 96 05/29/18 11:30 105 H 16 165/118 99 05/29/18 11:25 90 18 161/77 93 05/29/18 11:20 64 15 117/77 92 05/29/18 11:15 97.0 F L 65 16 135/69 89 Intake and Output 05/29/18 05/30/18 05/30/18 22:59 06:59 14:59 Intake Total 1320 1000 Output Total 1 Balance 1319 1000 Intake: IV 1000 1000 Lactated Ringers 1,000 ml 1000 @ 100 mls/hr IV DIRECT TIM Rx#:[id number] Lactated Ringers 1,000 ml 1000 @ 100 mls/hr IV DIRECT TIM Rx#:[id number] Oral 320 Output: Urine 1 Void 1 Other: Total, Intake Amount 320 Total, Output Amount 1 Voiding Method Toilet # Voids Void 4 - Exam Abdomen: Present: normal appearance Incision: Present: normal - Labs Labs: Abnormal lab results 05/29/18 05/29/18 Range/Units 08:36 11:33 POC Glucose 109 H 130 H (70-105)
--- NOTE | 2018-05-30 08:19 | Discharge Summary ---
Providers - Providers Date of Admission: 05/29/18 11:02 Date of discharge: 05/30/18 Attending physician: VIRGIL NAYLOR Primary care physician: ALLY ROMAN Hospitalization Reason for admission: other (complex left adnexal mass) Procedure: other (robotic-assisted left salpingo-oophorectomy and lysis of adhesions) Incision: normal Discharge diagnosis: other (left complex adnexal mass) Hospital course: The patient was admitted the day of surgery and underwent a robotic-assisted left salpingo-oophorectomy for complex adnexal mass. Please see operative note for details of surgery. Her postoperative course was uneventful. Condition at discharge: Good Disposition: DC-[id number] TO HOME OR SELFCARE - Discharge Diagnoses (1) Adnexal mass Status: Acute (2) Chronic pelvic pain in female Status: Acute Plan - Discharge Medications Prescriptions: Ibuprofen [Motrin] 800 mg PO Q8HR PRN #60 tablet PRN Reason: pain oxyCODONE /ACETAMINOPHEN [Percocet 5/325] 1 tab PO Q6HR PRN #30 tablet PRN Reason: Pain - Provider Discharge Summary Activity: other (pelvic rest for 1 week) Diet: routine Instructions: routine Additional instructions: [] Smoking cessation referral if applicable(refer to patient education folder for contact #) [] Refer to [facility]'s [facility] Booklet Call your doctor immediately for: * Fever > 100.5 * Heavy vaginal bleeding ( >1 pad per hour) * Severe persistent headache * Shortness of breath * Reddened, hot, painful area to leg or breast * Drainage or odor from incision. * Keep incision clean and dry at all times and follow doctor's instructions regarding bathing/showering Scheduled follow-up with Dr. Snow in 2 weeks - Follow up plan
[2018-05-30 10:42] VITALS: BP 126/68
[2018-05-30] MEDS: PERCOCET 5/325 PO PRN (11:01)
== END 2018-05-30 15:10 | disposition home or self-care (01) ==
LOC: OR 06:13 → OB 11:02
PROVIDERS: ADMIT Obstetrics & Gynecology; ATTEND Obstetrics & Gynecology
DX: R19.09 Other intra-abdominal and pelvic swelling, mass and lump (principal); R10.2 Pelvic and perineal pain; G89.29 Other chronic pain; N73.6 Female pelvic peritoneal adhesions (postinfective); I10 Essential (primary) hypertension; J45.909 Unspecified asthma, uncomplicated; E05.90 Thyrotoxicosis, unspecified without thyrotoxic crisis or storm; E11.9 Type 2 diabetes mellitus without complications; K21.9 Gastro-esophageal reflux disease without esophagitis; F44.5 Conversion disorder with seizures or convulsions; F32.9 Major depressive disorder, single episode, unspecified; F41.9 Anxiety disorder, unspecified; E66.9 Obesity, unspecified; Z85.79 Personal history of other malignant neoplasms of lymphoid, hematopoietic and related tissues; Z68.45 Body mass index [BMI] 70 or greater, adult
CPT/HCPCS: 36415; 58661; 80048; 82962; 85014; 85018; 85025; 88112; 88305; 96374; 96375; 96376; A4217; A4649; G0378; J0690; J1100; J1170; J1885; J2175; J2250; J2405; J2704; J3010; J7120; J7121

== ENCOUNTER 2018-06-24 10:54 | Emergency (ER) | payer MEDICARE ==
--- NOTE | 2018-06-24 11:45 | Emergency Department Report ---
HPI - General Chief Complaint: Abdominal Pain Time Seen by Provider: 06/24/18 11:19 - HPI HPI: This is a 48-year-old female status post left nephrectomy on May 29, 2018 who presents to ED complaining of pain on her right lower quadrant intermittent since the surgery. Patient states that she has been back to her surgeon twice and her surgeon as increase her pain medication but is causing her no relief. Patient states she takes 10 mg of Percocet which does not relieve the pain. She describes pain as shooting pain starting on her right side and sometimes radiates down her thighs. Patient also states pain when she has to urinate. 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 x 2. - Social History Smoking Status: Never Smoker Substance Use Type: None - Medications Home Medications: Home Medications Medication Instructions Recorded Confirmed Last Taken Type metFORMIN 500 mg PO DAILY 03/06/17 05/21/18 05/28/18 History Ipratropium/Albuterol Sulfate 1 ampul IH TIDRT PRN #30 ampul.neb 03/08/17 Unknown Rx [DUONEB *Not for PRN Use*] HYDROcodone/APAP 5-325 [[place] 1 each PO Q4HR PRN #15 tablet 09/14/17 05/21/18 Rx 5/325] Albuterol Sulfate [Ventolin HFA] 2 puff IH Q4H PRN 05/21/18 05/29/18 05/29/18 08 :25 History Escitalopram [Lexapro] 10 mg PO DAILY 05/21/18 05/21/18 05/28/18 History Estradiol 2 mg PO DAILY 05/21/18 05/21/18 05/28/18 History Ipratropium/Albuterol Sulfate 1 ampul IH Q4HR PRN 05/21/18 05/29/18 1 Month Ago History [DUONEB *Not for PRN Use*] ~04/28/18 Levothyroxine [Synthroid] 25 mcg PO DAILY 05/21/18 05/21/18 05/28/18 History Metoprolol [Lopressor TAB] 50 mg PO BID 05/21/18 05/29/18 05/29/18 05:30 History Tolterodine Tartrate [Detrol LA] 4 mg PO DAILY 05/21/18 05/21/18 05/28/18 History traZODone [Desyrel] 50 mg PO QHS 05/21/18 05/21/18 05/28/18 History Ibuprofen [Motrin] 800 mg PO Q8HR PRN #60 tablet 05/29/18 Unknown Rx oxyCODONE /ACETAMINOPHEN [Percocet 1 tab PO Q6HR PRN #30 tablet 05/29/18 Unknown Rx 5/325] Ciprofloxacin HCl [Ciprofloxacin 500 mg PO Q12HR #14 tab 06/24/18 Unknown Rx TAB] metroNIDAZOLE [Metronidazole] 500 mg PO BID #14 tablet 06/24/18 Unknown Rx ED Review of Systems ROS: Stated complaint: POST SURGERY PAIN (RIGHT SIDE) Other details as noted in HPI Constitutional: denies: chills, fever Eyes: denies: eye pain, eye discharge, vision change ENT: denies: ear pain, throat pain Respiratory: denies: cough, shortness of breath, wheezing Cardiovascular: denies: chest pain, palpitations Endocrine: no symptoms reported Gastrointestinal: denies: abdominal pain, nausea, diarrhea Genitourinary: denies: urgency, dysuria, discharge Musculoskeletal: denies: back pain, joint swelling, arthralgia Skin: denies: rash, lesions Neurological: denies: headache, weakness, paresthesias Psychiatric: denies: anxiety, depression Hematological/Lymphatic: denies: easy bleeding, easy bruising Physical Exam - Physical Exam Vital Signs: Vital Signs 06/24/18 11:05 Temperature 99.3 F Pulse Rate 126 H Respiratory 20 Rate Blood Pressure 179/98 O2 Sat by Pulse 97 Oximetry Physical Exam: GENERAL: Alert and oriented x3, no apparent distress, Normal Gait, atraumatic. HEAD: Head is normocephalic and a-traumatic. EYES: Extra ocular muscles are intact. Pupils are equal, round, and reactive to light and accommodation. LUNGS: Symetrical with respiration, No wheezing, no rales or crackles, CTAB. HEART: S1, S2 present, regular rate and rhythm without murmur, no rubs, no gallops. Non tender to palpation ABDOMEN: No organomegaly was noted,Positive bowel sounds, soft, and non- distended. Four Healed surgical scars present Tender to palpation on right Quadrant and left upper, NO CVA tenderness. BACK: Full range of motion, no spinal tenderness, nontender to palpation. SKIN: Warm and dry, No lesions, No ulceration or induration present. ED Course Vital Signs 06/24/18 11:05 Temperature 99.3 F Pulse Rate 126 H Respiratory 20 Rate Blood Pressure 179/98 O2 Sat by Pulse 97 Oximetry ED Medical Decision Making - Lab Data Result diagrams: 06/24/18 11:59 06/24/18 11:59 - Radiology Data Radiology results: report reviewed, image reviewed FINDINGS: Lung bases: Normal. Liver: Mild diffuse fatty infiltration of the liver is identified. No focal mass or enlargement. Biliary system: Subtle noncalcified gallstones are suspected in the gallbladder. No biliary dilatation or inflammation. Pancreas: Normal. Spleen: Normal. Kidneys/ureters/bladder: Normal. Adrenal glands: Normal. Aorta: Normal. Intestines: There are scattered diverticula in the distal colon. A focal area of inflammation and surrounding fat stranding is identified in the sigmoid colon consistent with acute diverticulitis. No evidence for free air or abscess. The remaining bowel loops are unremarkable. Appendix: Appendectomy changes. Pelvic viscera: Hysterectomy changes. Cystic lesion in the left adnexa has resolved or been surgically removed since 2017 Ascites: None. Adenopathy: None. Musculoskeletal: Mild lumbar spondylosis is identified. No fracture or suspicious bony lesion. IMPRESSION: Acute sigmoid diverticulitis. Transcribed By: TTR Dictated By: MARIJA HOOPER JR, MD Electronically Authenticated By: MARIJA HOOPER JR, MD Signed Date/Time: 06/24/18 1206 - Medical Decision Making 48-year-old female presents with sigmoid diverticulitis ED course: CBC, CMP, urinalysis ordered CT of the abdomen and pelvis. Labs do not indicate any acute infection, patient does not look sick me, she looks well nourished I discussed with patient that she has inflammation of her bowels Patient states understanding instructions. Discussed the patient to take her pain for 2 primary care She denies some distraction. Patient sent to the antibiotics . This is a patient to stop taking cephalexin as prescribed by her own DIRECTOR OF LEADERSHIP DEVELOPMENT and start taking the long given to her today Dr. Ni Echavarria examined patient as well. Vital signs are stable, blood pressure and pulse dropped prior to discharge Critical care attestation.: If time is entered above; I have spent that time in minutes in the direct care of this critically ill patient, excluding procedure time. ED Disposition Clinical Impression: Diverticulitis, Sigmoid diverticulitis Disposition: TO HOME OR SELFCARE Is pt being admited?: No Does the pt Need Aspirin: No Condition: Stable Instructions: Diverticulitis (ED), Diverticulitis Diet (ED), Abdominal Pain (ED ) Additional Instructions: Make sure to keeping her appointment which her primary care tomorrow. Take your paperwork from the ER to primary care physician so that they're aware of diagnosis Take all your medications as you've been prescribed. If you have any worsening symptoms or develop new symptoms please return to ED immediately. Prescriptions: Ciprofloxacin HCl [Ciprofloxacin TAB] 500 mg PO Q12HR #14 tab metroNIDAZOLE [Metronidazole] 500 mg PO BID #14 tablet Referrals: PRIMARY CARE, [Primary Care Provider] - 3-5 Days Forms: Work/School Release Form(ED) Time of Disposition: 12:38
--- NOTE | 2018-06-24 12:07 | Cat Scan Report ---
CT ABDOMEN PELVIS WITHOUT CONTRAST: HISTORY: Right lower quadrant abdominal pain. COMPARISON: 03/06/17. TECHNIQUE: Helical CT in 1.25mm intervals without IV contrast. Sagittal and coronal reconstructions. FINDINGS: Lung bases: Normal. Liver: Mild diffuse fatty infiltration of the liver is identified. No focal mass or enlargement. Biliary system: Subtle noncalcified gallstones are suspected in the gallbladder. No biliary dilatation or inflammation. Pancreas: Normal. Spleen: Normal. Kidneys/ureters/bladder: Normal. Adrenal glands: Normal. Aorta: Normal. Intestines: There are scattered diverticula in the distal colon. A focal area of inflammation and surrounding fat stranding is identified in the sigmoid colon consistent with acute diverticulitis. No evidence for free air or abscess. The remaining bowel loops are unremarkable. Appendix: Appendectomy changes. Pelvic viscera: Hysterectomy changes. Cystic lesion in the left adnexa has resolved or been surgically removed since 2017 Ascites: None. Adenopathy: None. Musculoskeletal: Mild lumbar spondylosis is identified. No fracture or suspicious bony lesion. IMPRESSION: Acute sigmoid diverticulitis.
[2018-06-24 12:08] LABS: Bacteria,Urine 1+ /HPF (Negative); Bilirubin,Urine NEG (Negative); Blood,Urine NEG (Negative); Color,Urine Yellow (Yellow); Mucus,Urine FEW /HPF; Protein,Urine <15 mg/dL mg/dL (Negative); Urobilinogen,Urine < 2.0 mg/dL (<2.0)
[2018-06-24 12:24] LABS: Basophils % (Auto) 0.4 % (0.0-1.8); Eosinophils # (Auto) 0.1 K/mm3 (0.0-0.4); Eosinophils % (Auto) 2.1 % (0.0-4.3); Hematocrit 36.9 % (30.3-42.9); Hemoglobin 12.1 gm/dl (10.1-14.3); Lymphocytes # (Auto) 2.1 K/mm3 (1.2-5.4); Lymphocytes % (Auto) 45.3 % (13.4-35.0); Mean Corpuscular HGB Conc 33 % (30-34); Mean Corpuscular Hemoglobin 26 pg (28-32); Mean Corpuscular Volume 81 fl (79-97); Monocytes # (Auto) 0.2 K/mm3 (0.0-0.8); Monocytes % (Auto) 4.1 % (0.0-7.3); Platelet Count 339 K/mm3 (140-440); Red Blood Count 4.57 M/mm3 (3.65-5.03); Red Cell Distribution Width 13.7 % (13.2-15.2)
--- NOTE | 2018-06-24 12:37 | Emergency Department Report ---
Blank Doc - Documentation Documentation: I evaluated Ms. Maguire alongside my colleague. We were concerned that patient' s presentation that did not correspond with CT findings. However with further questioning, patient did have abdominal bloating, constipation and fluid intolerance. We gave extensive education regarding her new diagnosis. She has follow-up with both her PCP and BUSINESS SYSTEMS TECHNICIAN tomorrow. We strongly encouraged her to take her discharge instructions to both physicians to inform them of the new diagnosis. She will be given antibiotics metronidazole and Ciprofloxacin. She understands to stop cephalexin medication. Diagnosis acute sigmoid diverticulitis.
[2018-06-24 12:45] LABS: Alanine Aminotransferase 50 units/L (7-56); Albumin 4.2 g/dL (3.9-5); BUN/Creatinine Ratio 14; Blood Urea Nitrogen 11 mg/dL (7-17); Calcium 9.3 mg/dL (8.4-10.2); Hemolysis Index 0
[2018-06-24 13:11] VITALS: BP 143/88
== END 2018-06-24 13:15 | disposition home or self-care (01) ==
LOC: ED 10:54
DX: K57.32 Diverticulitis of large intestine without perforation or abscess without bleeding (principal); I10 Essential (primary) hypertension; E11.9 Type 2 diabetes mellitus without complications; K21.9 Gastro-esophageal reflux disease without esophagitis; M19.90 Unspecified osteoarthritis, unspecified site; J45.909 Unspecified asthma, uncomplicated; Z90.49 Acquired absence of other specified parts of digestive tract; Z86.711 Personal history of pulmonary embolism; Z90.711 Acquired absence of uterus with remaining cervical stump; Z88.1 Allergy status to other antibiotic agents
CPT/HCPCS: 36415; 74176; 80053; 81001; 85025; 93005; 93010; 99284

== ENCOUNTER 2018-10-25 12:35 | Emergency (ER) | payer MEDICARE ==
--- NOTE | 2018-10-25 12:45 | Emergency Department Report ---
Chief Complaint: Abdominal Pain Stated Complaint: STOMACH PAIN/DIARRHEA/LIGHT HEADED Time Seen by Provider: 10/25/18 12:38 - HPI History of Present Illness: pt due for colonoscopy on sunday for diverticular diz now with gen abd pain no vomiting today; pos nausea stool this am- mucousy no fever cc abd pain, diarrhea, dizzy when stands pmh diverticulitis-- see Dr Thorne gerd mult myeloma htn dm asthma chronic knee pain- injections last week psh hysterectomy rx metoprolol tresa lexapro flexeril metformin naproxen topamax T 3 synthroid ventolin abc intact to ER for eval. Pt did call Dr Thorne and he told her to come here MSE screening note: Focused history and physical exam performed. Due to findings the following was ordered: ED Disposition for MSE Condition: Stable Instructions: Abdominal Pain (ED)
[2018-10-25 12:51] VITALS: BP 164/98
[2018-10-25 13:12] LABS: Basophils % (Auto) 0.7 % (0.0-1.8); Eosinophils # (Auto) 0.1 K/mm3 (0.0-0.4); Hematocrit 37.3 % (30.3-42.9); Hemoglobin 12.2 gm/dl (10.1-14.3); Lymphocytes % (Auto) 47.2 % (13.4-35.0); Mean Corpuscular HGB Conc 33 % (30-34); Mean Corpuscular Volume 81 fl (79-97); Monocytes # (Auto) 0.3 K/mm3 (0.0-0.8); Monocytes % (Auto) 4.7 % (0.0-7.3); Platelet Count 373 K/mm3 (140-440); Red Blood Count 4.58 M/mm3 (3.65-5.03); Red Cell Distribution Width 13.9 % (13.2-15.2)
[2018-10-25 13:34] LABS: Alanine Aminotransferase 45 units/L (7-56); Albumin 4.1 g/dL (3.9-5); BUN/Creatinine Ratio 14; Bilirubin,Direct < 0.2 mg/dL (0-0.2); Blood Urea Nitrogen 11 mg/dL (7-17); Hemolysis Index 21
[2018-10-25] MEDS ORDERED: PEPCID IV ONE (13:43)
[2018-10-25] MEDS ORDERED: ZOFRAN IV ONE (13:43)
[2018-10-25] MEDS ORDERED: TORADOL IV ONE (13:43)
[2018-10-25] MEDS ORDERED: BENTYL IM ONE (13:43)
[2018-10-25] MEDS ORDERED: NACL 0.9% 1000 ML 1,000 ML IV ONE (13:47)
[2018-10-25 14:20] LABS: HCG Qualitative,Urine Negative (Negative)
[2018-10-25 14:25] LABS: Bilirubin,Urine NEG (Negative); Blood,Urine NEG (Negative); Color,Urine Yellow (Yellow); Mucus,Urine FEW /HPF; Urobilinogen,Urine < 2.0 mg/dL (<2.0)
--- NOTE | 2018-10-25 16:41 | Cat Scan Report ---
FINAL REPORT EXAM: CT ABDOMEN PELVIS W CON HISTORY: abd pain diarrhea , prior appendectomy TECHNIQUE: CT examination of the ABDOMEN after IV contrast CT examination of the PELVIS after IV contrast PRIORS: 03/06/2017 FINDINGS: No significant lung base abnormality. No acute fracture. Nonspecific diffusely decreased density of liver parenchyma may reflect fatty infiltration. No visua lized focal liver lesion. There is focal fatty sparing adjacent to the gallbladder fossa. Calcification and slight gas is noted in the gallbladder fossa. This is suggestive of gallstones. No CT evidence of other biliary pathology. Normal-appearing adrenals, pancreas, and spleen. Intact normal caliber abdominal aorta and IVC. Anika l-appearing kidneys and ureters. Small fat containing umbilical hernia. No inguinal hernia. No retroperitoneal adenopathy. No evidence of mesenteric mass. Normal-appearing stomach and duodenum. No small bowel distention in the abdomen and pelvis. No pelvic free fluid. Normal-appearing urinary bladder and rectum. Uterus not visualized which may be surgically absent. Slight diverticulosis distal descending colon and proximal sigmoid colon. There is trace adjacent francesca e fluid which may reflect mild acute inflammation from diverticulitis. There is also slight thickenin g of the adjacent sigmoid mesocolon. No diverticular abscess or perforation. No gross ascites, free air, or colonic distention. Normal-appearing cecum and terminal ileum. Surgica lly absent appendix with surgical clips adjacent to the cecal tip. IMPRESSION: Subtle findings may reflect mild diverticulitis at the junction between the descending and sigmoid co corky. Suggestion of hepatic steatosis Slight calcification and gas in the gallbladder lumen suspicious for gallstones
[2018-10-25] MEDS ORDERED: DIFLUCAN PO ONE (16:58)
--- NOTE | 2018-10-25 17:03 | Emergency Department Report ---
ED Abdominal Pain HPI - General Chief Complaint: Abdominal Pain Stated Complaint: STOMACH PAIN/DIARRHEA/LIGHT HEADED Time Seen by Provider: 10/25/18 12:38 Source: patient Mode of arrival: Ambulatory Limitations: No Limitations - History of Present Illness Initial Comments: Patient is a 48 red medical female who is complaining of some generalized abdominal pain for last 4 days. Patient states the pain is crampy in nature. She also is getting some sharp pains in the left upper quadrant. Patient's had diarrhea and nausea with no vomiting. Patient denies fevers chills or hematochezia. Patient was sent in by her assistant maintenance manager to be evaluated for diverticulitis. Patient has a routine colonoscopy scheduled for Sunday. Severity scale (0 -10): 5 - Related Data Home Medications Medication Instructions Recorded Confirmed Last Taken metFORMIN 500 mg PO DAILY 03/06/17 05/21/18 05/28/18 Albuterol Sulfate [Ventolin HFA] 2 puff IH Q4H PRN 05/21/18 05/29/18 05/29/18 08:25 Escitalopram [Lexapro] 10 mg PO DAILY 05/21/18 05/21/18 05/28/18 Estradiol 2 mg PO DAILY 05/21/18 05/21/18 05/28/18 Ipratropium/Albuterol Sulfate 1 ampul IH Q4HR PRN 05/21/18 05/29/18 1 Month Ago [DUONEB *Not for PRN Use*] ~04/28/18 Levothyroxine [Synthroid] 25 mcg PO DAILY 05/21/18 05/21/18 05/28/18 Metoprolol [Lopressor TAB] 50 mg PO BID 05/21/18 05/29/18 05/29/18 05:30 Tolterodine Tartrate [Detrol LA] 4 mg PO DAILY 05/21/18 05/21/18 05/28/18 traZODone [Desyrel] 50 mg PO QHS 05/21/18 05/21/18 05/28/18 Previous Rx's Medication Instructions Recorded Last Taken Type Ipratropium/Albuterol Sulfate 1 ampul IH TIDRT PRN #30 ampul.neb 03/08/17 Unknown Rx [DUONEB *Not for PRN Use*] HYDROcodone/APAP 5-325 [[place] 1 each PO Q4HR PRN #15 tablet 09/14/17 05/28/18 Rx 5/325] Ibuprofen [Motrin] 800 mg PO Q8HR PRN #60 tablet 05/29/18 Unknown Rx oxyCODONE /ACETAMINOPHEN [Percocet 1 tab PO Q6HR PRN #30 tablet 05/29/18 Unknown Rx 5/325] Ciprofloxacin HCl [Ciprofloxacin 500 mg PO Q12HR #14 tab 06/24/18 Unknown Rx TAB] metroNIDAZOLE [Metronidazole] 500 mg PO BID #14 tablet 06/24/18 Unknown Rx Ciprofloxacin HCl [Cipro] 500 mg PO BID #14 tablet 10/25/18 Unknown Rx Dicyclomine [Bentyl] 10 mg PO QID #15 capsule 10/25/18 Unknown Rx HYDROcodone/APAP 5-325 [[place] 1 each PO Q4HR PRN #12 tablet 10/25/18 Unknown Rx 5/325] Ibuprofen [Motrin] 600 mg PO Q8H PRN #20 tablet 10/25/18 Unknown Rx Ondansetron [Zofran Odt] 4 mg PO Q8HR PRN #10 tab.rapdis 10/25/18 Unknown Rx metroNIDAZOLE [Flagyl] 500 mg PO TID #21 tab 10/25/18 Unknown Rx Allergies Allergy/AdvReac Type Severity Reaction Status Date / Time clindamycin Allergy Rash Verified 10/25/18 12:37 ED Review of Systems ROS: Stated complaint: STOMACH PAIN/DIARRHEA/LIGHT HEADED Other details as noted in HPI Comment: All other systems reviewed and negative ED Past Medical Hx - Past Medical History Hx Hypertension: Yes (over 19 years) Hx CVA: Yes ("TIA" with persistent dysarthria) Hx Congestive Heart Failure: No Hx Diabetes: Yes Hx Pulmonary Embolism: Yes (2010) Hx GERD: Yes Hx Arthritis: Yes (Knee, shoulder, back) Hx Headaches / Migraines: Yes (Migraines) 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 x 2. - Social History Smoking Status: Unknown if ever smoked - Medications Home Medications: Home Medications Medication Instructions Recorded Confirmed Last Taken Type metFORMIN 500 mg PO DAILY 03/06/17 05/21/18 05/28/18 History Ipratropium/Albuterol Sulfate 1 ampul IH TIDRT PRN #30 ampul.neb 03/08/17 05/21/18 Unknown Rx [DUONEB *Not for PRN Use*] HYDROcodone/APAP 5-325 [[place] 1 each PO Q4HR PRN #15 tablet 09/14/17 05/21/18 05/28/18 Rx 5/325] Albuterol Sulfate [Ventolin HFA] 2 puff IH Q4H PRN 05/21/18 05/29/18 05/29/18 08:25 History Escitalopram [Lexapro] 10 mg PO DAILY 05/21/18 05/21/18 05/28/18 History Estradiol 2 mg PO DAILY 05/21/18 05/21/18 05/28/18 History Ipratropium/Albuterol Sulfate 1 ampul IH Q4HR PRN 05/21/18 05/29/18 1 Month Ago History [DUONEB *Not for PRN Use*] ~04/28/18 Levothyroxine [Synthroid] 25 mcg PO DAILY 05/21/18 05/21/18 05/28/18 History Metoprolol [Lopressor TAB] 50 mg PO BID 05/21/18 05/29/18 05/29/18 05:30 History Tolterodine Tartrate [Detrol LA] 4 mg PO DAILY 05/21/18 05/21/18 05/28/18 History traZODone [Desyrel] 50 mg PO QHS 05/21/18 05/21/18 05/28/18 History Ibuprofen [Motrin] 800 mg PO Q8HR PRN #60 tablet 05/29/18 Unknown Rx oxyCODONE /ACETAMINOPHEN [Percocet 1 tab PO Q6HR PRN #30 tablet 05/29/18 Unknown Rx 5/325] Ciprofloxacin HCl [Ciprofloxacin 500 mg PO Q12HR #14 tab 06/24/18 Unknown Rx TAB] metroNIDAZOLE [Metronidazole] 500 mg PO BID #14 tablet 06/24/18 Unknown Rx Ciprofloxacin HCl [Cipro] 500 mg PO BID #14 tablet 10/25/18 Unknown Rx Dicyclomine [Bentyl] 10 mg PO QID #15 capsule 10/25/18 Unknown Rx HYDROcodone/APAP 5-325 [[place] 1 each PO Q4HR PRN #12 tablet 10/25/18 Unknown Rx 5/325] Ibuprofen [Motrin] 600 mg PO Q8H PRN #20 tablet 10/25/18 Unknown Rx Ondansetron [Zofran Odt] 4 mg PO Q8HR PRN #10 tab.rapdis 10/25/18 Unknown Rx metroNIDAZOLE [Flagyl] 500 mg PO TID #21 tab 10/25/18 Unknown Rx ED Physical Exam - General Limitations: No Limitations General appearance: alert, in no apparent distress - Head Head exam: Present: atraumatic, normocephalic - Eye Eye exam: Present: normal appearance, PERRL, EOMI - ENT ENT exam: Present: mucous membranes moist - Neck Neck exam: Present: normal inspection - Respiratory Respiratory exam: Present: normal lung sounds bilaterally. Absent: respiratory distress, wheezes, rales, rhonchi - Cardiovascular Cardiovascular Exam: Present: regular rate, normal rhythm, normal heart sounds. Absent: systolic murmur, diastolic murmur, rubs, gallop - GI/Abdominal GI/Abdominal exam: Present: soft, tenderness (generalized abdominal tenderness that is mild), normal bowel sounds. Absent: distended, guarding, rebound, rigid, hernia - Extremities Exam Extremities exam: Present: normal inspection - Back Exam Back exam: Present: normal inspection - Neurological Exam Neurological exam: Present: alert, oriented X3 - Psychiatric Psychiatric exam: Present: normal affect, normal mood - Skin Skin exam: Present: warm, dry, intact, normal color. Absent: rash ED Course Vital Signs 10/25/18 12:50 Temperature 98.8 F Pulse Rate 104 H Respiratory 18 Rate Blood Pressure 164/98 [Left] O2 Sat by Pulse 100 Oximetry ED Medical Decision Making - Lab Data Result diagrams: 10/25/18 12:51 10/25/18 12:51 Lab Results 10/25/18 10/25/18 10/25/18 Range/Units 12:51 12:51 13:51 WBC 6.4 (4.5-11.0) K/mm3 RBC 4.58 (3.65-5.03) M/mm3 Hgb 12.2 (10.1-14.3) gm/dl Hct 37.3 (30.3-42.9) % MCV 81 (79-97) fl MCH 27 L (28-32) pg MCHC 33 (30-34) % RDW 13.9 (13.2-15.2) % Plt Count 373 (140-440) K/mm3 Lymph % (Auto) 47.2 H (13.4-35.0) % [place] % (Auto) 4.7 (0.0-7.3) % Eos % (Auto) 1.0 (0.0-4.3) % Baso % (Auto) 0.7 (0.0-1.8) % Lymph # 3.0 (1.2-5.4) K/mm3 [place] # 0.3 (0.0-0.8) K/mm3 Eos # 0.1 (0.0-0.4) K/mm3 Baso # 0.0 (0.0-0.1) K/mm3 Seg Neutrophils % 46.4 (40.0-70.0) % Seg Neutrophils # 3.0 (1.8-7.7) K/mm3 Sodium 136 L (137-145) mmol/L Potassium 4.1 (3.6-5.0) mmol/L Chloride 98.9 (98-107) mmol/L Carbon Dioxide 25 (22-30) mmol/L Anion Gap 16 mmol/L BUN 11 (7-17) mg/dL Creatinine 0.8 (0.7-1.2) mg/dL Estimated GFR > 60 ml/min BUN/Creatinine Ratio 14 % Glucose 113 H (65-100) mg/dL Calcium 9.0 (8.4-10.2) mg/dL Total Bilirubin 0.30 (0.1-1.2) mg/dL Direct Bilirubin < 0.2 (0-0.2) mg/dL Indirect Bilirubin 0.1 mg/dL AST 38 (5-40) units/L ALT 45 (7-56) units/L Alkaline Phosphatase 139 H (35-129) units/L Total Protein 9.0 H (6.3-8.2) g/dL Albumin 4.1 (3.9-5) g/dL Albumin/Globulin Ratio 0.8 % Lipase 39 (13-60) units/L Urine Color (Yellow) Urine Turbidity (Clear) Urine pH (5.0-7.0) Ur Specific [place] (1.003-1.030) Urine Protein (Negative) mg/dL Urine Glucose (UA) (Negative) mg/dL Urine Ketones (Negative) mg/dL Urine Blood (Negative) Urine Nitrite (Negative) Urine Bilirubin (Negative) Urine Urobilinogen (<2.0) mg/dL Ur Leukocyte Esterase (Negative) Urine WBC (Auto) (0.0-6.0) /HPF Urine RBC (Auto) (0.0-6.0) /HPF U Epithel Cells (Auto) (0-13.0) /HPF Urine Mucus /HPF Urine HCG, Qual Negative (Negative) 10/25/18 Range/Units 13:53 WBC (4.5-11.0) K/mm3 RBC (3.65-5.03) M/mm3 Hgb (10.1-14.3) gm/dl Hct (30.3-42.9) % MCV (79-97) fl MCH (28-32) pg MCHC (30-34) % RDW (13.2-15.2) % Plt Count (140-440) K/mm3 Lymph % (Auto) (13.4-35.0) % [place] % (Auto) (0.0-7.3) % Eos % (Auto) (0.0-4.3) % Baso % (Auto) (0.0-1.8) % Lymph # (1.2-5.4) K/mm3 [place] # (0.0-0.8) K/mm3 Eos # (0.0-0.4) K/mm3 Baso # (0.0-0.1) K/mm3 Seg Neutrophils % (40.0-70.0) % Seg Neutrophils # (1.8-7.7) K/mm3 Sodium (137-145) mmol/L Potassium (3.6-5.0) mmol/L Chloride (98-107) mmol/L Carbon Dioxide (22-30) mmol/L Anion Gap mmol/L BUN (7-17) mg/dL Creatinine (0.7-1.2) mg/dL Estimated GFR ml/min BUN/Creatinine Ratio % Glucose (65-100) mg/dL Calcium (8.4-10.2) mg/dL Total Bilirubin (0.1-1.2) mg/dL Direct Bilirubin (0-0.2) mg/dL Indirect Bilirubin mg/dL AST (5-40) units/L ALT (7-56) units/L Alkaline Phosphatase (35-129) units/L Total Protein (6.3-8.2) g/dL Albumin (3.9-5) g/dL Albumin/Globulin Ratio % Lipase (13-60) units/L Urine Color Yellow (Yellow) Urine Turbidity Clear (Clear) Urine pH 5.0 (5.0-7.0) Ur Specific [place] 1.016 (1.003-1.030) Urine Protein 30 mg/dl (Negative) mg/dL Urine Glucose (UA) Neg (Negative) mg/dL Urine Ketones Neg (Negative) mg/dL Urine Blood Neg (Negative) Urine Nitrite Neg (Negative) Urine Bilirubin Neg (Negative) Urine Urobilinogen < 2.0 (<2.0) mg/dL Ur Leukocyte Esterase Neg (Negative) Urine WBC (Auto) 3.0 (0.0-6.0) /HPF Urine RBC (Auto) 2.0 (0.0-6.0) /HPF U Epithel Cells (Auto) 1.0 (0-13.0) /HPF Urine Mucus Few /HPF Urine HCG, Qual (Negative) - Radiology Data [facility] [address] [place] [address] Cat Scan Report Signed Patient: TRACY MCGRATH MR#: [id number] : 1970 Acct:[id number] Age/Sex: 48 / F ADM Date: 10/25/18 Loc: ED Attending Dr: Ordering Physician: ZONIA VASQUEZ MD Date of Service: 10/25/18 Procedure(s): CT abdomen pelvis w con Accession Number(s): [id number] cc: ZONIA VASQUEZ MD FINAL REPORT EXAM: CT ABDOMEN PELVIS W CON HISTORY: abd pain diarrhea , prior appendectomy TECHNIQUE: CT examination of the ABDOMEN after IV contrast CT examination of the PELVIS after IV contrast PRIORS: 03/06/2017 FINDINGS: No significant lung base abnormality. No acute fracture. Nonspecific diffusely decreased density of liver parenchyma may reflect fatty infiltration. No visualized focal liver lesion. There is focal fatty sparing adjacent to the gallbladder fossa. Calcification and slight gas is noted in the gallbladder fossa. This is suggestive of gallstones. No CT evidence of other biliary pathology. Normal-appearing adrenals, pancreas, and spleen. Intact normal caliber abdominal aorta and IVC. Normal-appearing kidneys and ureters. Small fat containing umbilical hernia. No inguinal hernia. No retroperitoneal adenopathy. No evidence of mesenteric mass. Normal-appearing stomach and duodenum. No small bowel distention in the abdomen and pelvis. No pelvic free fluid. Normal-appearing urinary bladder and rectum. Uterus not visualized which may be surgically absent. Slight diverticulosis distal descending colon and proximal sigmoid colon. There is trace adjacent free fluid which may reflect mild acute inflammation from diverticulitis. There is also slight thickening of the adjacent sigmoid mesocolon. No diverticular abscess or perforation. No gross ascites, free air, or colonic distention. Normal-appearing cecum and terminal ileum. Surgically absent appendix with surgical clips adjacent to the cecal tip. IMPRESSION: Subtle findings may reflect mild diverticulitis at the junction between the descending and sigmoid colon. Suggestion of hepatic steatosis Slight calcification and gas in the gallbladder lumen suspicious for gallstones Transcribed By: ESTEFANÍA Dictated By: SHIRLENE CALLAWAY MD Electronically Authenticated By: SHIRLENE CALLAWAY MD Signed Date/Time: 10/25/18 1641 DD/ 163 TD/TT: 10/25/18 1639 - Medical Decision Making Patient is stable as far as her vital signs and the patient is not any kind of distress. She is resting comfortably in a chair. Patient's CT does show mild diverticulitis that I believe the patient is a good candidate for outpatient therapy. Patient started on Cipro Flagyl Bentyl and [place]on. Patient also given Zofran for nausea control. Patient asked for Diflucan secondary to having thrush in the past with antibiotics. 1st dose given here today. Critical care attestation.: If time is entered above; I have spent that time in minutes in the direct care of this critically ill patient, excluding procedure time. ED Disposition Clinical Impression: Diverticulitis Disposition: - TO HOME OR SELFCARE Is pt being admited?: No Does the pt Need Aspirin: No Condition: Stable Instructions: Diverticulitis (ED), Diverticulitis Diet (ED) Referrals: ALLY ROMAN MD [Primary Care Provider] - 3-5 Days Time of Disposition: 17:03
== END 2018-10-25 17:49 | disposition home or self-care (01) ==
LOC: ED 12:35
DX: K57.92 Diverticulitis of intestine, part unspecified, without perforation or abscess without bleeding (principal); I10 Essential (primary) hypertension; E11.9 Type 2 diabetes mellitus without complications; Z86.711 Personal history of pulmonary embolism; G43.909 Migraine, unspecified, not intractable, without status migrainosus; J45.909 Unspecified asthma, uncomplicated; Z90.49 Acquired absence of other specified parts of digestive tract; Z90.711 Acquired absence of uterus with remaining cervical stump; Z88.1 Allergy status to other antibiotic agents
CPT/HCPCS: 36415; 74177; 80048; 80076; 81001; 81025; 83690; 85025; 96361; 96372; 96374; 96375; 99284; J0500; J1885; J2405; J7030; Q9967

== ENCOUNTER 2019-08-30 08:32 | Emergency (ER) | payer MEDICARE ==
[2019-08-30 10:08] LABS: Bacteria,Urine 1+ /HPF (Negative); Bilirubin,Urine NEG (Negative); Blood,Urine NEG (Negative); Color,Urine Yellow (Yellow); Protein,Urine <15 mg/dL mg/dL (Negative); Urobilinogen,Urine < 2.0 mg/dL (<2.0)
[2019-08-30] MEDS ORDERED: ONDANSETRON 4 MG ODT TAB PO ONE (11:08)
[2019-08-30] MEDS ORDERED: KETOROLAC 60 MG/2 ML INJ IM ONE (11:08)
--- NOTE | 2019-08-30 11:38 | Emergency Department Report ---
ED General Adult HPI - General Chief complaint: Abdominal Pain Stated complaint: BRENT/RT SIDE PAIN Time Seen by Provider: 08/30/19 10:54 Source: patient Mode of arrival: Ambulatory Limitations: No Limitations - History of Present Illness Initial comments: 49 yo female c/o right upper quadrant pain radiating to right flank. Pain 10/10 not relieved with Tylenol and Tramadol . Pain started last night associated with nausea. She denies fever and chills. Last BM was night. Reports hx of kidney stones. S/o cholecystectomy, appendectomy and full hysterectomy -: Sudden Location: abdomen Radiation: flank Severity scale (0 -10): 8 Quality: stabbing, constant Consistency: constant Improves with: none Worsens with: movement Associated Symptoms: headaches, other (nausea). denies: confusion, chest pain, cough, diaphoresis, fever/chills, shortness of breath, syncope, weakness Treatments Prior to Arrival: other (ultram and tylenol) - Related Data Home Medications Medication Instructions Recorded Confirmed Last Taken metFORMIN 500 mg PO DAILY 03/06/17 05/21/18 05/28/18 Albuterol Sulfate [Ventolin HFA] 2 puff IH Q4H PRN 05/21/18 05/29/18 05/29/18 08:25 Escitalopram [Lexapro] 10 mg PO DAILY 05/21/18 05/21/18 05/28/18 Ipratropium/Albuterol Sulfate 1 ampul IH Q4HR PRN 05/21/18 05/29/18 1 Month Ago [DUONEB *Not for PRN Use*] ~04/28/18 Levothyroxine [Synthroid] 25 mcg PO DAILY 05/21/18 05/21/18 05/28/18 Metoprolol [Lopressor TAB] 50 mg PO BID 05/21/18 05/29/18 05/29/18 05:30 Tolterodine Tartrate [Detrol LA] 4 mg PO DAILY 05/21/18 05/21/18 05/28/18 estradioL [Estradiol] 2 mg PO DAILY 05/21/18 05/21/18 05/28/18 traZODone [Desyrel] 50 mg PO QHS 05/21/18 05/21/18 05/28/18 Previous Rx's Medication Instructions Recorded Last Taken Type Ipratropium/Albuterol Sulfate 1 ampul IH TIDRT PRN #30 ampul.neb 03/08/17 Unknown Rx [DUONEB *Not for PRN Use*] HYDROcodone/APAP 5-325 [[place] 1 each PO Q4HR PRN #15 tablet 09/14/17 05/28/18 Rx 5/325] Ibuprofen [Motrin] 800 mg PO Q8HR PRN #60 tablet 05/29/18 Unknown Rx oxyCODONE /ACETAMINOPHEN [Percocet 1 tab PO Q6HR PRN #30 tablet 05/29/18 Unknown Rx 5/325] Ciprofloxacin HCl [Ciprofloxacin 500 mg PO Q12HR #14 tab 06/24/18 Unknown Rx TAB] metroNIDAZOLE [Metronidazole] 500 mg PO BID #14 tablet 06/24/18 Unknown Rx Ciprofloxacin HCl [Cipro] 500 mg PO BID #14 tablet 10/25/18 Unknown Rx Dicyclomine [Bentyl] 10 mg PO QID #15 capsule 10/25/18 Unknown Rx HYDROcodone/APAP 5-325 [[place] 1 each PO Q4HR PRN #12 tablet 10/25/18 Unknown Rx 5/325] Ibuprofen [Motrin] 600 mg PO Q8H PRN #20 tablet 10/25/18 Unknown Rx Ondansetron [Zofran Odt] 4 mg PO Q8HR PRN #10 tab.rapdis 10/25/18 Unknown Rx metroNIDAZOLE [Flagyl] 500 mg PO TID #21 tab 10/25/18 Unknown Rx traMADoL [Ultram 50 MG tab] 50 mg PO Q6HR PRN 3 Days #12 tablet 08/30/19 Unknown Rx Allergies Allergy/AdvReac Type Severity Reaction Status Date / Time clindamycin Allergy Rash Verified 10/25/18 17:03 ED Review of Systems ROS: Stated complaint: BRENT/RT SIDE PAIN Other details as noted in HPI Comment: All other systems reviewed and negative Constitutional: no symptoms reported Respiratory: no symptoms reported Cardiovascular: denies: chest pain, palpitations, dyspnea on exertion, edema, syncope, paroxysmal nocturnal dyspnea Endocrine: denies: no symptoms reported Gastrointestinal: abdominal pain, nausea. 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 x 2. - Social History Smoking Status: Never Smoker - Medications Home Medications: Home Medications Medication Instructions Recorded Confirmed Last Taken Type metFORMIN 500 mg PO DAILY 03/06/17 05/21/18 05/28/18 History Ipratropium/Albuterol Sulfate 1 ampul IH TIDRT PRN #30 ampul.neb 03/08/17 05/21/18 Unknown Rx [DUONEB *Not for PRN Use*] HYDROcodone/APAP 5-325 [[place] 1 each PO Q4HR PRN #15 tablet 09/14/17 05/21/18 05/28/18 Rx 5/325] Albuterol Sulfate [Ventolin HFA] 2 puff IH Q4H PRN 05/21/18 05/29/18 05/29/18 08:25 History Escitalopram [Lexapro] 10 mg PO DAILY 05/21/18 05/21/18 05/28/18 History Ipratropium/Albuterol Sulfate 1 ampul IH Q4HR PRN 05/21/18 05/29/18 1 Month Ago History [DUONEB *Not for PRN Use*] ~04/28/18 Levothyroxine [Synthroid] 25 mcg PO DAILY 05/21/18 05/21/18 05/28/18 History Metoprolol [Lopressor TAB] 50 mg PO BID 05/21/18 05/29/18 05/29/18 05:30 History Tolterodine Tartrate [Detrol LA] 4 mg PO DAILY 05/21/18 05/21/18 05/28/18 History estradioL [Estradiol] 2 mg PO DAILY 05/21/18 05/21/18 05/28/18 History traZODone [Desyrel] 50 mg PO QHS 05/21/18 05/21/18 05/28/18 History Ibuprofen [Motrin] 800 mg PO Q8HR PRN #60 tablet 05/29/18 Unknown Rx oxyCODONE /ACETAMINOPHEN [Percocet 1 tab PO Q6HR PRN #30 tablet 05/29/18 Unknown Rx 5/325] Ciprofloxacin HCl [Ciprofloxacin 500 mg PO Q12HR #14 tab 06/24/18 Unknown Rx TAB] metroNIDAZOLE [Metronidazole] 500 mg PO BID #14 tablet 06/24/18 Unknown Rx Ciprofloxacin HCl [Cipro] 500 mg PO BID #14 tablet 10/25/18 Unknown Rx Dicyclomine [Bentyl] 10 mg PO QID #15 capsule 10/25/18 Unknown Rx HYDROcodone/APAP 5-325 [[place] 1 each PO Q4HR PRN #12 tablet 10/25/18 Unknown Rx 5/325] Ibuprofen [Motrin] 600 mg PO Q8H PRN #20 tablet 10/25/18 Unknown Rx Ondansetron [Zofran Odt] 4 mg PO Q8HR PRN #10 tab.rapdis 10/25/18 Unknown Rx metroNIDAZOLE [Flagyl] 500 mg PO TID #21 tab 10/25/18 Unknown Rx traMADoL [Ultram 50 MG tab] 50 mg PO Q6HR PRN 3 Days #12 tablet 08/30/19 Unknown Rx ED Physical Exam - General Limitations: No Limitations General appearance: alert, in no apparent distress - Head Head exam: Present: atraumatic - Eye Eye exam: Present: normal appearance - ENT ENT exam: Present: normal exam, mucous membranes moist - Neck Neck exam: Present: normal inspection - Respiratory Respiratory exam: Present: normal lung sounds bilaterally. Absent: respiratory distress, wheezes, rales, rhonchi, chest wall tenderness - Cardiovascular Cardiovascular Exam: Present: regular rate, normal rhythm, normal heart sounds - GI/Abdominal GI/Abdominal exam: Present: soft, normal bowel sounds. Absent: distended, tenderness, guarding, rebound - Extremities Exam Extremities exam: Present: normal inspection - Back Exam Back exam: Present: normal inspection. Absent: CVA tenderness (R), CVA tenderness (L) - Neurological Exam Neurological exam: Present: alert, oriented X3 - Psychiatric Psychiatric exam: Present: normal affect - Skin Skin exam: Present: warm, dry, intact, normal color. Absent: rash ED Course Vital Signs 08/30/19 08/30/19 08:35 16:10 Temperature 97.7 F Pulse Rate 74 68 Respiratory 18 18 Rate Blood Pressure 176/97 Blood Pressure 168/94 [Right] O2 Sat by Pulse 99 98 Oximetry - Reevaluation(s) Reevaluation #1: 08/30/19 14:01 Pt decreasing abdominal pain now #4. Ambulatory with steady gait still waiting on CT of abdomen and pelvis to be done ED Medical Decision Making - Lab Data Result diagrams: 08/30/19 11:29 08/30/19 11:29 - Radiology Data Radiology results: report reviewed CT abd/pelvis FINDINGS: Lung bases are clear. No pneumoperitoneum is noted. No significant abdominal wall herniation is seen. Mild colonic diverticulosis is noted without evidence of diverticulitis. Appendix has been removed. No evidence of bowel obstruction is seen. Gallbladder has been removed. No biliary dilatation is seen. Pancreas appears within normal limits. Prominent fatty infiltration of the liver is seen. Liver is enlarged and has a length of 20.8 cm. Spleen appears within normal limits. No lymphadenopathy is seen. No focal inflammatory changes are noted. No masses are seen. No urinary tract calculi or evidence of obstruction are noted. Ureters appear within normal limits. Urinary bladder not well distended but shows no obvious abnormalities. IMPRESSION: 1. No acute abnormalities are seen 2. Prominent fatty infiltration of the liver with moderate hepatomegaly - Medical Decision Making 49 yo pt with c/o right flank pain Labs wnl, urine neg for WBC and RBC CT of abd/pelvis + fatty liver which is chronic pt aware of hx of fatty liver. Pain decreased to manageable level with Toradol IM D/C with Zofran for pain and follow up with PCP Critical Care Time: No Critical care attestation.: If time is entered above; I have spent that time in minutes in the direct care of this critically ill patient, excluding procedure time. ED Disposition Clinical Impression: Flank pain, acute, Fatty liver Disposition: - TO HOME OR SELFCARE Is pt being admited?: No Does the pt Need Aspirin: No Condition: Stable Instructions: Non-Alcoholic Fatty Liver Disease (ED), Abdominal Pain (ED), Flank Pain (ED) Additional Instructions: Please follow up with your doctor in 2-3 days or return to ER for any worsening symptoms, such as increasing pain, fever vomiting. You can also follow up with [facility] or Dr. Allen. Prescriptions: traMADoL [Ultram 50 MG tab] 50 mg PO Q6HR PRN 3 Days #12 tablet PRN Reason: Pain Referrals: ALAN FRANZ III, EXERCISE SCIENTIST- [Primary Care Provider] - 3-5 Days JAY ALLEN MD [Staff Physician] - 3-5 Days Time of Disposition: 15:29
[2019-08-30 11:55] LABS: Hematocrit 39.2 % (30.3-42.9); Hemoglobin 12.6 gm/dl (10.1-14.3); Mean Corpuscular HGB Conc 32 % (30-34); Mean Corpuscular Volume 83 fl (79-97); Platelet Count 332 K/mm3 (140-440); Red Blood Count 4.75 M/mm3 (3.65-5.03); Red Cell Distribution Width 13.8 % (13.2-15.2)
[2019-08-30 12:17] LABS: Alanine Aminotransferase 38 units/L (7-56); Albumin 3.7 g/dL (3.9-5); BUN/Creatinine Ratio 14; Blood Urea Nitrogen 10 mg/dL (7-17); Calcium 8.8 mg/dL (8.4-10.2); Hemolysis Index 7
--- NOTE | 2019-08-30 14:59 | Cat Scan Report ---
CT ABDOMEN AND PELVIS WITHOUT CONTRAST INDICATION: MAIN: Left flank pain-----PT STATES RT SIDE PAIN NOT LEFT X 2 DAYS CONTRAST: Without IV COMPARISON: 10/25/[address] scans at this location are performed using CT dose reduction for ALARA by means of automated e xposure control. NOTE: Resolution is decreased and artifact is introduced by the patient's size. FINDINGS: Lung bases are clear. No pneumoperitoneum is noted. No significant abdominal wall herniatio n is seen. Mild colonic diverticulosis is noted without evidence of diverticulitis. Appendix has been removed. No evidence of bowel obstruction is seen. Gallbladder has been removed. No biliary dilatati on is seen. Pancreas appears within normal limits. Prominent fatty infiltration of the liver is seen. Liver is enlarged and has a length of 20.8 cm. Spleen appears within normal limits. No lymphadenopat hy is seen. No focal inflammatory changes are noted. No masses are seen. No urinary tract calculi or evidence of obstruction are noted. Ureters appear within normal limits. Urinary bladder not well dist ended but shows no obvious abnormalities. IMPRESSION: 1. No acute abnormalities are seen 2. Prominent fatty infiltration of the liver with moderate hepatomegaly Signer Name: Luis Enrique Gamino MD Signed: 08/30/2019 2:55 PM Workstation Name: [id number]
[2019-08-30 16:11] VITALS: BP 168/94
== END 2019-08-30 16:02 | disposition home or self-care (01) ==
LOC: ED 08:32
DX: K76.0 Fatty (change of) liver, not elsewhere classified (principal); I10 Essential (primary) hypertension; E11.9 Type 2 diabetes mellitus without complications; K21.9 Gastro-esophageal reflux disease without esophagitis; M19.90 Unspecified osteoarthritis, unspecified site; G43.909 Migraine, unspecified, not intractable, without status migrainosus; J45.909 Unspecified asthma, uncomplicated; Z90.710 Acquired absence of both cervix and uterus; Z90.49 Acquired absence of other specified parts of digestive tract; Z79.899 Other long term (current) drug therapy; Z88.1 Allergy status to other antibiotic agents; Z86.73 Personal history of transient ischemic attack (TIA), and cerebral infarction without residual deficits
CPT/HCPCS: 36415; 74176; 80053; 81001; 85027; 96372; 99284; J1885; Q0162